=== PATIENT | male | born 1940 | race Asian ===

== ENCOUNTER 2022-02-19 16:23 | Outpatient (REF) | payer MEDICARE, SELFPAY ==
[2022-02-19 16:42] LABS: MANUAL DIFF FLAG NO
[2022-02-19 17:31] LABS: Basophils Percent Auto 0.8 % (0-2); Eosinophils Absolute Auto 0.3 X10*3/uL (0.0-0.4); Eosinophils Percent Auto 6.2 % (0-4); Hematocrit 43.4 % (42.0-52.0); Hemoglobin 14.2 g/dl (14.0-18.0); Imm Gran Abs Auto 0.01 X10*3/uL (0.00-0.03); Imm Gran Pct Auto 0.2 % (0.0-0.4); Lymphocytes Absolute Auto 1.4 X10*3/uL (1.2-4.9); Lymphocytes Percent Auto 26.1 % (20-40); Mean Corpuscular HGB Conc 32.7 g/dl (31.0-36.0); Mean Corpuscular Hemoglobin 30.1 pg (27.0-33.0); Mean Corpuscular Volume 91.9 fL (80.0-98.0); Mean Platelet Volume 9.1 fL (9.4-12.4); Monocytes Absolute Auto 0.6 X10*3/uL (0.1-1.2); Monocytes Percent Auto 11.3 % (2-11); Neutrophils Percent Auto 55.4 % (45-73); Platelet Count 295 X10*3/uL (160-400); Red Blood Count 4.72 X10*6/uL (4.60-5.80); Red Cell Distribution Width 12.9 % (11.0-16.0); White Blood Count 5.3 X10*3/uL (4.8-10.8)
[2022-02-19 17:52] LABS: Alanine Aminotransferase 16 U/L (0-40); Albumin Level 4.4 g/dL (3.5-5.0); Alkaline Phosphatase 63 U/L (39-117); Anion Gap 14 (12-20); Aspartate Amino Transferase 17 U/L (5-37); Bilirubin Total 0.8 mg/dL (0.0-1.0); Blood Urea Nitrogen 19 mg/dL (9-16); Calcium 9.4 mg/dL (8.4-10.2); Carbon Dioxide 28 mmol/L (22-29); Chloride 103 mmol/L (96-108); Cholesterol 153 mg/dL; Estimated Glomerular Filt Rate > 60; Glucose Random 116 mg/dL (60-115); HDL Cholesterol 37 mg/dL; LDL Cholesterol Calculated 96 mg/dl; Potassium 4.4 mmol/L (3.3-5.1); Sodium 141 mmol/L (135-145); Total Protein 7.6 g/dL (6.5-8.0); Triglycerides 103 mg/dL
[2022-02-19 18:13] LABS: Prostate Specific Antigen 2.57 ng/mL (<0.05-4.0)
[2022-02-19 18:24] LABS: Vitamin B12 314 pg/mL (200-900)
== END 2022-02-19 16:24 | disposition home or self-care (01) ==
LOC: HO.LAB 16:23
PROVIDERS: PCP Internal Medicine; Visit Provider Internal Medicine
DX: D51.8 Other vitamin B12 deficiency anemias (principal); E78.2 Mixed hyperlipidemia; I10 Essential (primary) hypertension; N40.0 Benign prostatic hyperplasia without lower urinary tract symptoms; Z12.5 Encounter for screening for malignant neoplasm of prostate
CPT/HCPCS: 36415; 80053; 80061; 82607; 84153; 85025

== ENCOUNTER 2023-08-13 21:55 | Emergency (ER) | payer MEDICARE, SELFPAY ==
[2023-08-13 22:03] VITALS: BP 157/63; PULSE 82; RESP 17; TEMP 36.6; O2SAT 98; BMI 21.9
--- NOTE | 2023-08-13 22:11 | ED_ITS ---
HPI - General Adult General Chief complaint: General Medical Stated complaint: not sleeping well? abnormal bp? Source: patient Mode of arrival: ambulatory Limitations: no limitations History of Present Illness HPI narrative: Patient is an 82 year old assigned male at with no reported medical history presenting to the emergency department today with concerns his blood pressure may be high and struggling to sleep. Patient states that he has been having a hard time sleeping at night lately and he is concerned his blood pressure may be high. Patient denies any dizziness, lightheadedness, abdominal pain, nausea, vomiting, fever, chills, blurry vision, double vision, loss of vision, chest pain, difficulty breathing, shortness of breath, back pain, night sweats, pain with urination, increased urinary frequency, increased urinary urgency, blood in his urine or stool, syncope or a near syncopal episode, recent trauma or falls, bowel incontinence, bladder incontinence, bowel retention, bladder retention, or any other complaints at this time. Relieving factors: none Exacerbating factors: none Associated symptoms: denies other symptoms Treatments prior to arrival: none Related Data Allergies Allergy/AdvReac Type Severity Reaction Status Date / Time No Known Allergies Allergy Unverified 02/17/20 18:30 Review of Systems Constitutional: Constitutional: Reports no additional constitutional complaints, Denies chills, Reports difficulty sleeping, Denies fever(s) and Denies night sweats Eyes: Eyes: Reports no additional eye complaints, Denies blurry vision, Denies change in vision, Denies diplopia, Denies eye discharge, Denies loss of vision and Denies eye pain ENT: Denies dizziness Cardiovascular: Cardiovascular: Reports no additional cardiovascular complaints, Denies chest pain, Denies lightheadedness, Denies Loss of Consciousness and Denies dyspnea Respiratory: Respiratory: Reports no additional respiratory complaints and Denies dyspnea Gastrointestinal: Gastrointestinal: Reports no additional gastrointestinal complaints, Denies abdominal pain, Denies melena, Denies hematochezia, Denies change in bowel habits and Denies change in stool character Genitourinary: Genitourinary: Reports no additional male genitourinary complaints, Denies hematuria, Denies oliguria, Denies difficulty urinating, Denies dysuria, Denies urinary frequency, Denies urinary hesitancy, Denies urinary incontinence and Denies urinary urgency Musculoskeletal: Musculoskeletal: Reports no additional musculoskeletal complaints, Denies numbness and Denies tingling Neurologic: Denies dizziness, Denies loss of vision, Denies numbness and Denies tingling Psychiatric: Psychiatric: Reports no additional psychiatric complaints Endocrine: Endocrine: Reports no additional endocrine complaints Hematologic/Lymphatic: Hematologic/Lymphatic: Reports no additional hematologic/lymphatic complaints Allergic/Immunologic: Allergic/Immunologic: Reports no additional a llergic/immunologic complaints PMFSH Past Medical History Attestation statement: The following information was validated with the patient. Source: old records reviewed and nursing notes reviewed Social History Social History Advance Directives: No Advance Directives Information Provided: No Physical Exam ED Vital Signs: Vital Signs - 24 hr 08/13/23 22:03 Temperature 97.8 F Pulse Rate 82 Respiratory Rate 17 Blood Pressure 157/63 H Pulse Oximetry 98 Oxygen Delivery Method Room Air BMI result Body Mass Index 21.9 Const General: cooperative, no acute distress, alert and awake Nutritional Appearance: well nourished Orientation/consciousness: patient oriented x3 Limitations: no limitations HENMT Head: Yes normal to inspection and Yes atraumatic Ears: hearing grossly normal bilaterally and external ears normal General nose exam: Normal external nose present, no nasal discharge noted and no epistaxis Face and sinus: Yes normal facial exam, No abrasion and No laceration Mouth: Normal oral and palatal mucosa present, no drooling and no muffled voice Eyes General: appearance normal, both eyes and all related structures Periorbital: periorbital findings normal Eyelids: Yes eyelids normal Conjunctivae: conjunctivae normal Pupils: Equal, round and reactive pupils present EOM: EOMs intact bilaterally Neck Neck: Yes normal visual inspection, Yes full ROM and Yes no lymphadenopathy Chest Chest palpation & inspection: normal inspection of the chest Resp Effort & Inspection: normal respiratory effort and able to speak in complete sentences GI Inspection: Yes normal to inspection Neuro General: patient oriented x3 and moves all extremities Cranial nerves: Yes Equal, round and reactive pupils present Cognition (Neuro): normal cognition Motor exam (neuro): 5/5 motor strength present throughout Sensory Exam: Normal double simultaneous stimulation for sensation Coordination: [id number] test normal Extrem General: Yes normal to inspection, Yes full ROM and Yes capillary refill normal Psych Appearance: grossly normal Mental Status: mental status grossly normal Affect: normal affect Attitude: cooperative Thought process: Normal thought process present Thought content: Normal thought content present Insight: Good insight present (Psych) Course Course Course Narrative: RME performed by Yani Pearce PA-C. Patient is an 82 year old assigned male at presenting to the emergency department with difficulty sleeping and some concern. Detailed physical exam and review of systems are deferred to the public policy professor. Labs ordered. Patient placed back in the waiting room pending room availability and results. Medical Decision Making Medical Decision Making MDM Narrative: Patient is an 82 year old assigned male at with no reported medical history presenting to the emergency department today with trouble sleeping and concern his blood pressure is high. Patient's limited physical exam performed in triage was unremarkable. Patient left the department without completing treatmen t. Patient left the department before myself or any of the other emergency department clinicians could explain or review physical exam findings, need for testing, treatment options, or a treatment plan. Differential Diagnosis Differential Diagnoses: The differential diagnosis associated with the presentation includes HTN Elevated blood pressure Anxiety Insomnia Early dementia Admission/Observation Consideration of admission/observation: Escalation of care including admission/observation considered Patient would have been admitted to the hospital had his work up had any findings where hospital admission was appropriate, his clinical presentation w arranted hospital admission, and he hadn't left the department. Discharge Plan Discharge Clinical Impression: Insomnia Patient Disposition: Left W/O Completing Treatment Interventions: LWBS Worksheet Last Done: 08/13/23 22:58 Discharge Date/Time: 08/13/23 22:58
== END 2023-08-13 22:58 | disposition left against medical advice (07) ==
PROVIDERS: Emergency Provider Emergency Medicine
DX: G47.00 Insomnia, unspecified (principal)
CPT/HCPCS: 99281

== ENCOUNTER 2023-08-17 20:56 | Emergency (ER) | payer MEDICARE, SELFPAY ==
[2023-08-17 21:04] VITALS: BP 152/58; PULSE 81; RESP 16; TEMP 36.4; O2SAT 100; BMI 22.5
== END 2023-08-18 02:06 | disposition left against medical advice (07) ==
LOC: HO.ED 08-18 02:06
PROVIDERS: Emergency Provider Emergency Medicine
DX: Z03.89 Encounter for observation for other suspected diseases and conditions ruled out (principal)
CPT/HCPCS: 99281

== ENCOUNTER 2024-11-08 18:55 | Emergency (ER) | payer MEDICARE, SELFPAY ==
--- NOTE | ~2024-11-08 | CT_ITS ---
CLINICAL HISTORY: generalized weakness CT head without contrast Comparison: None Findings: No acute hemorrhage. Basal ganglia calcifications. No extra-axial fluid collection. No hydrocephalus, mass-effect or herniation. Mike-white differentiation is maintained. There is patchy hypoattenuation of the periventricular and deep white matter, which is most likely the sequela of moderate chronic small vessel ischemic disease. No acute orbital pathology. No acute soft tissue abnormality. No fracture. The visualized paranasal sinuses are predominantly clear. The mastoid air cells are clear. Impression: No acute findings. This document has been electronically signed by: Mary Ann Cali MD on 11/08/2024 20:40:49
[2024-11-08 19:19] VITALS: BP 101/50; PULSE 76; RESP 19; TEMP 36.7; O2SAT 97; BMI 23.0
--- NOTE | 2024-11-08 19:25 | ED_ITS ---
HPI - General Adult General Chief complaint: Extremity Injury, Lower Stated complaint: left leg hurts more than right really weak Time Seen by Provider: 11/09/24 01:11 Source: patient, family and old records reviewed Mode of arrival: ambulatory Limitations: no limitations History of Present Illness ED Provider: CHAPARRO MARIA narrative: 84 yo male with PMH HLD, arthritis who states since his COVID shot back in December over a year ago he has had intermittent leg weakness and pain. He notes it has gotten to the point he cannot walk and his notes he can barely get around. He has no new trauma or fevers. He tries to stand up and is really weak. He has not fallen. He could barely get into the bed without RN help. He states he still drives. It appears he tries to stand then cannot initiate his gait. MD complaint: difficulty walking Onset (ago): month(s) (12) Location: left and lower extremity Radiation: non-radiation Severity: moderate Quality: aching Pain Consistency: constant Relieving factors: none Exacerbating factors: movement Associated symptoms: denies other symptoms Treatments prior to arrival: none Related Data Home Medications ?Medication ?Instructions ?Recorded ?Confirmed aspirin 81 mg tablet,delayed 81 mg PO DAILY 11/09/24 11/09/24 release cholecalciferol (vitamin D3) 25 25 mcg PO Q48H 11/09/24 11/09/24 mcg (1,000 unit) tablet (Vitamin D3) cyanocobalamin (vitamin B-12) 1,000 mcg PO DAILY 11/09/24 11/09/24 1,000 mcg tablet lovastatin 10 mg tablet 10 mg PO BEDTIME 11/09/24 11/09/24 naproxen 500 mg tablet 500 mg PO BID 11/09/24 11/09/24 omega 9-abk-alc-fish oil 1,000 mg 1 cap PO Q48H 11/09/24 11/09/24 (120 mg-180 mg) capsule (Fish Oil) Allergies Allergy/AdvReac Type Severity Reaction Status Date / Time No Known Allergies Allergy Verified 11/08/24 19:22 Review of Systems 2 Review of Systems: Constitutional : No Fever, No Chills ENT/Mouth : No Ear Pain, No Hoarseness, No sore throat Eyes: No Eye Pain, No Swelling, No Redness, No Foreign Body Cardiovascular : No Chest Pain, No SOB Respiratory : No Cough, No Dyspnea Gastrointestinal : No Nausea, No Vomiting, No Diarrhea, No abdominal Pain Genitourinary : No Dysuria, No Hematuria Musculoskeletal : positive joint pain, No Myalgias, No Joint Swelling Skin : No Skin lacerations, No rash Neuro : pos Weakness, No Numbness, No Loss of Consciousness, No Dizziness, No Headache Psych : No Anxiety/Panic, No Depression Heme/Lymph: no easy bruising, no Lymphadenopathy Endocrine : No Polyuria, No Polydipsia All other systems reviewed and are negative [facility] Past Medical History Attestation statement: The following information was validated with the patient. Source: old records reviewed Medical History Arthritis Hyperlipidemia Social History Social History (Updated 11/09/24 @ 02:15 by Nelia Sears DO) Patient Tobacco Use Status: Never used Tobacco Smoked in Last 30 Days: No Use of substances other than those prescribed or required for medical reasons: No Advance Directives: No Advance Directives Information Provided: No Do you have a plan to hurt others: No Plan Physical Exam ED Vital Signs: Vital Signs - 24 hr 11/09/24 01:17 11/09/24 09:06 11/09/24 16:19 Temperature 98.7 F 97.3 F 98.1 F Pulse Rate 66 67 60 Respiratory Rate 16 14 16 Blood Pressure 145/62 H 175/77 H 169/81 H Pulse Oximetry 99 99 98 Oxygen Delivery Method Room Air Room Air Room Air 11/09/24 20:20 Temperature 98.7 F Pulse Rate 80 Respiratory Rate 20 Blood Pressure 120/73 Pulse Oximetry 97 Oxygen Delivery Method Room Air BMI result Body Mass Index 23.0 Appearance: Alert. Oriented X3. No acute distress. Eyes: Pupils equal, round and reactive to light. ENT: Pharynx normal. Neck: Normal inspection. Neck supple. CVS: Normal heart rate and rhythm. Pulses normal. Respiratory: No respiratory distress. Breath sounds normal. Abdomen: Soft and nontender. Skin: Skin warm and dry. Normal skin color. Normal skin turgor. Extremities: No lower extremity edema. No calf ttp Neuro: Oriented X 3. No motor deficit. No sensory deficit. CN2-12 intact, has a hard time getting up then when he tries to walk it is shuffling and unsteady Course Course Course Narrative: RME, this is a rapid medical exam performed by John Melo please refer to primary provider for complete H&P- 84 year old male presents for evaluation of worsening weakness since receiving flu and COVID vaccinations at the end of December. Both legs are affected and he is having trouble walking. Plan for labs, ct brain Reevaluation(s) Reevaluation #1: Case management saw the patient today, they were concerned about his safety secondary to his poor mobility, the patient and his had agreed to services to the home, they adamantly have refused rehab. The patient is up and ambulatory, walking with a very slow steady gait. They want to be discharged, they do not want to stay. The patient is alert and oriented x3, his spouse's as well, we can not hold him against his will, I am discharging now. Time: 20:52 Medications Administered Generic Name Dose Route Start Last Admin Trade Name Freq PRN Reason Stop Dose Admin Cefuroxime Axetil 250 mg 11/09/24 21:00 11/09/24 20:21 Cefuroxime Axetil 250 Mg Tablet PO 11/15/24 23:59 250 mg BID ELENA Administration Medical Decision Making Medical Decision Making MDM Narrative: 84 yo male with PMH HLD, arthritis who has > 1 year of issues walking and now gait instability - he has no trauma he blames the covid/flu vaccines. He still drives. He is very unsteady on his feet. This has been a prolonged course at this time will obtain labs, EKG , CT head. Refer to PT/CM if negative Time: 19:01 Date: 11/09/24 Provider: OUSMANE Wadsworth Patient in physician observation for case management needs. No acute events reported overnight.? Urinalysis does appear to be infected, started on Ceftin. technical operations manager saw patient, they want to go home, agreeable to VNA service. There is some concern with safety, with a language barrier, you do have capacity to make this incision, VNA services will not be set up today therefore we will keep overnight, with possible discharge in the morning. Will reassess. Differential Diagnosis Differential Diagnoses: The differential diagnosis associated with the presentation includes PMR, arthritis, FTT, fall risk Admission/Observation Consideration of admission/observation: Escalation of care including admission/observation considered physician observation started at 2am pending PT/CM Consult Healthcare Provider Management of the patient was discussed with: Gymnasium Teacher Lab Data MDM Lab Attestation statement: I reviewed the patient's lab results. 11/08/24 19:57 11/08/24 19:57 Labs: Lab Results 11/08/24 11/09/24 11/09/24 Range/Units 19:57 09:55 10:48 WBC 6.4 (4.8-10.8) X10*3/uL RBC 3.97 L (4.60-5.80) X10*6/uL Hgb 12.5 L (14.0-18.0) g/dl Hct 37.2 L (42.0-52.0) % MCV 93.7 (80.0-98.0) fL MCH 31.5 (27.0-33.0) pg MCHC 33.6 (31.0-36.0) g/dl RDW 12.3 (11.0-16.0) % Plt Count 290 (160-400) X10*3/uL MPV 8.8 L (9.4-12.4) fL Immature Gran % (Auto) 0.3 (0.0-0.4) % Neut % (Auto) 63.2 (45-73) % Lymph % (Auto) 20.6 (20-40) % Gonzales % (Auto) 10.7 (2-11) % Eos % (Auto) 4.6 H (0-4) % Baso % (Auto) 0.6 (0-2) % Lymph # (Auto) 1.3 (1.2-4.9) X10*3/uL Gonzales # (Auto) 0.7 (0.1-1.2) X10*3/uL Eos # (Auto) 0.3 (0.0-0.4) X10*3/uL Baso # (Auto) 0.0 (0.0-0.2) X10*3/uL Abs Immat Gran (auto) 0.02 (0.00-0.03) X10*3/uL Absolute Neuts (auto) 4.0 (2.0-8.3) x10*3/uL Absolute Nucleated RBC 0.000 (0.0-0.012) X10*3/uL Nucleated RBC % (auto) 0.0 (0.0-0.2) /100WBC ESR 12 (0-15) MM/HR Sodium 142 (135-145) mmol/L Potassium 3.8 (3.3-5.1) mmol/L Chloride 111 H (96-108) mmol/L Carbon Dioxide 23 (22-29) mmol/L Anion Gap 12 (12-20) BUN 27 H (9-16) mg/dL Creatinine 1.02 (0.5-1.4) mg/dL Estim Creat Clear Calc 42.6 Estimated GFR > 60 Random Glucose 118 H (60-115) mg/dL Calcium 9.1 (8.4-10.2) mg/dL Total Bilirubin 0.4 (0.0-1.0) mg/dL AST 21 (5-37) U/L ALT 16 (0-40) U/L Alkaline Phosphatase 58 (39-117) U/L Troponin I High Sens < 2.7 (<3.5-35.0) ng/L C-Reactive Protein < 0.10 (< or = 0.50) mg/dL B-Natriuretic Peptide 65 (<100) pg/mL Total Protein 6.7 (6.5-8.0) g/dL Albumin 3.9 (3.5-5.0) g/dL Urine Color Yellow Urine Appearance Clear Urine pH 6.5 (5.0-9.0) Ur Specific [place] 1.015 (1.005-1.025) Urine Protein Negative (Neg-Trace) mg/dL Urine Glucose (UA) Negative (Negative) mg/dL Urine Ketones Negative (Negative) mg/dL Urine Blood Negative (Negative) Urine Nitrite Negative (Negative) Ur Leukocyte Esterase Moderate (2+) H (Negative) Urine RBC 0-2 (0-2) /HPF Urine WBC 21-50 H (0-5) /HPF Ur Squamous Epith Cells 0-2 (0-2) /HPF Urine Bacteria 1+ (None Seen) Hyaline Casts 0-2 (0-2) /LPF Influenza Type A (PCR) NEGATIVE (Negative) Influenza Type B (PCR) NEGATIVE (Negative) RSV RNA Qual (PCR) NEGATIVE (Negative) SARS-CoV-2 RNA (RT-PCR) NEGATIVE (Negative) Independent Interpretation I performed an independent interpretation of an: EKG and CT Scan (no mass) Interpretation: Rate: 70 Rhythm: NSR [place]: left Normal P waves. Normal DIONNE. Normal QRS complex. ST T wave : T wave inversion V1 qTC: 455 prior studies: no change from prior The study has been interpreted contemporaneously by me. . Radiology Impression Discussion of test interpretation with radiology: I have reviewed the radiologist's reading. Independent Historian Clinical information obtained from an independent historian. History obtained from or confirmed by: Spouse External Record Review External record reviewed: Outpatient record Discharge Plan Discharge Clinical Impression: Unstable gait Patient Disposition: Home, Self-Care Additional Instructions: You have declined to stay for your full assessment and care plan that was going to be implemented by case management. There was discussion today in regard to initiating services to your home. I am discharging you per your request. Follow up with your primary care provider as needed. Prescriptions: No Action cyanocobalamin (vitamin B-12) 1,000 mcg tablet 1,000 mcg PO DAILY lovastatin 10 mg tablet 10 mg PO BEDTIME naproxen 500 mg tablet 500 mg PO BID aspirin [Aspir-81] 81 mg Tablet,Delayed Release (Dr/Ec) 81 mg PO DAILY cholecalciferol (vitamin D3) [Vitamin D3] 25 mcg (1,000 unit) Tablet 25 mcg PO Q48H omega 1-khr-qis-fish oil [Fish Oil] 1,000 (120-180) mg Capsule 1 cap PO Q48H Referrals: [facility] [Outside] Print Language: Kelsey Wyman
--- NOTE | 2024-11-08 19:25 | ECG_ITS ---
Test Reason : weakness Blood Pressure : */* mmHG Vent. Rate : 70 BPM Atrial Rate : 70 BPM P-R Int : 192 ms QRS Dur : 90 ms QT Int : 422 ms P-R-T Axes : 44 -40 59 degrees QTcB Int : 455 ms Normal sinus rhythm Left axis deviation Nonspecific T wave abnormality Abnormal ECG When compared with ECG of 13-Aug-2012 16:54, No significant changes seen Referred By: Vipin Melo Electronically Signed By: ANTWAN DEVINE MD
[2024-11-08 20:03] LABS: MANUAL DIFF FLAG NO
[2024-11-08 20:04] LABS: Basophils Percent Auto 0.6 % (0-2); Eosinophils Absolute Auto 0.3 X10*3/uL (0.0-0.4); Eosinophils Percent Auto 4.6 % (0-4); Hematocrit 37.2 % (42.0-52.0); Hemoglobin 12.5 g/dl (14.0-18.0); Imm Gran Abs Auto 0.02 X10*3/uL (0.00-0.03); Imm Gran Pct Auto 0.3 % (0.0-0.4); Lymphocytes Absolute Auto 1.3 X10*3/uL (1.2-4.9); Lymphocytes Percent Auto 20.6 % (20-40); Mean Corpuscular HGB Conc 33.6 g/dl (31.0-36.0); Mean Corpuscular Hemoglobin 31.5 pg (27.0-33.0); Mean Corpuscular Volume 93.7 fL (80.0-98.0); Mean Platelet Volume 8.8 fL (9.4-12.4); Monocytes Absolute Auto 0.7 X10*3/uL (0.1-1.2); Monocytes Percent Auto 10.7 % (2-11); Neutrophils Percent Auto 63.2 % (45-73); Platelet Count 290 X10*3/uL (160-400); Red Blood Count 3.97 X10*6/uL (4.60-5.80); Red Cell Distribution Width 12.3 % (11.0-16.0); White Blood Count 6.4 X10*3/uL (4.8-10.8)
[2024-11-08 20:16] LABS: Alanine Aminotransferase 16 U/L (0-40); Albumin Level 3.9 g/dL (3.5-5.0); Alkaline Phosphatase 58 U/L (39-117); Anion Gap 12 (12-20); Aspartate Amino Transferase 21 U/L (5-37); Bilirubin Total 0.4 mg/dL (0.0-1.0); Blood Urea Nitrogen 27 mg/dL (9-16); C Reactive Protein < 0.10 mg/dL (< or = 0.50); Calcium 9.1 mg/dL (8.4-10.2); Carbon Dioxide 23 mmol/L (22-29); Chloride 111 mmol/L (96-108); Creatinine Clr Calc Pharmacy 42.6; Estimated Glomerular Filt Rate > 60; Glucose Random 118 mg/dL (60-115); Potassium 3.8 mmol/L (3.3-5.1); Sodium 142 mmol/L (135-145); Total Protein 6.7 g/dL (6.5-8.0)
[2024-11-08 20:22] LABS: B Type Natriuretic Peptide 65 pg/mL (<100)
[2024-11-08 20:23] LABS: Troponin-I High Sensitivity < 2.7 ng/L (<3.5-35.0)
[2024-11-08 20:54] LABS: Erythrocyte Sedimentation Rate 12 MM/HR (0-15)
[2024-11-09 01:17] VITALS: BP 145/62; PULSE 66; RESP 16; TEMP 37.1; O2SAT 99
--- NOTE | 2024-11-09 08:08 | PC.NURSE ---
PT at bedside.
[2024-11-09 09:06] VITALS: BP 175/77; PULSE 67; RESP 14; TEMP 36.3; O2SAT 99
[2024-11-09 10:45] LABS: Influenza A PCR NEGATIVE (Negative); Influenza B PCR NEGATIVE (Negative); Resp Syncy Virus RNA Qual PCR NEGATIVE (Negative); SARS COV2 PCR INHOUSE NEGATIVE (Negative)
[2024-11-09 10:55] LABS: Appearance Urine Clear; Color Urine Yellow; Glucose Urine UA Negative (Negative); Leukocyte Esterase Urine Moderate (2+) (Negative); Nitrite Urine Negative (Negative); PH 6.5 (5.0-9.0); Specific Gravity - Urine 1.015 (1.005-1.025); UMIC TRIGGER UACC YES; Urine Blood Negative (Negative); Urine Ketones Negative (Negative); Urine Protein Negative (Neg-Trace)
[2024-11-09 10:59] LABS: Bacteria Urine 1+ (None Seen); Hyaline Casts Urine 0-2 /LPF (0-2); RBC Urine 0-2 /HPF (0-2); Squamous Epithelial Cell Urine 0-2 /HPF (0-2); UACC Culture Trigger YES; WBC Urine 21-50 /HPF (0-5)
--- NOTE | 2024-11-09 11:47 | PC.NURSE ---
Attempted to give RN to RN report, awaiting call back. Plan to move the patient from ED 23 to Overflow.
--- NOTE | 2024-11-09 15:53 | PC.NURSE ---
Med rec completed with Pt and Pts spouse. Medications entered as Pt and report. Pt and also report Pt takes an OTC Vitamin D (unknown strength) and that his Naproxen is not effective. OUSMANE Doe aware of entries and the need for orders as well as information re: Vitamin D and Naproxen.
[2024-11-09 16:19] VITALS: BP 169/81; PULSE 60; RESP 16; TEMP 36.7; O2SAT 98
--- NOTE | 2024-11-09 18:16 | PHA.MEDREC ---
Addendum entered by Mark José [facility] 11/09/24 18:29: Med rec reviewed Original Note: Pharmacy Consult ? Medication Reconciliation Pharmacy has reviewed the medication reconciliation done by nursing. Patient state he takes Asprin 81 mg daily, vitamin D3 1,000mg QOD and Fish Oil 1,000 mg QOD, added to med list
[2024-11-09 20:20] VITALS: BP 120/73; PULSE 80; RESP 20; TEMP 37.1; O2SAT 97
[2024-11-09] MEDS: cefuroxime axetiL 250 MG TABLET PO (20:21)
[2024-11-09 21:16] VITALS: BP 120/73; PULSE 80; RESP 20; TEMP 37.1; O2SAT 97
== END 2024-11-09 21:25 | disposition home or self-care (01) ==
PROVIDERS: Physician Assistant; Physician Assistant Medical; Emergency Provider Emergency Medicine
DX: R26.81 Unsteadiness on feet (principal); M79.605 Pain in left leg; N39.0 Urinary tract infection, site not specified; R06.02 Shortness of breath; R94.31 Abnormal electrocardiogram [ECG] [EKG]; R53.1 Weakness; Z79.899 Other long term (current) drug therapy; Z03.818 Encounter for observation for suspected exposure to other biological agents ruled out
CPT/HCPCS: 0241U; 36415; 70450; 80053; 81001; 83880; 84484; 85025; 85652; 86140; 87086; 87088; 87186; 93005; 97162; 99284

== ENCOUNTER → 2024-11-08 19:25 | Outpatient (BNV) | payer MEDICARE, SELFPAY | PROVIDERS: Emergency Provider Emergency Medicine; Visit Provider Internal Medicine Cardiovascular Disease | DX: R94.31 Abnormal electrocardiogram [ECG] [EKG] (principal); R53.1 Weakness | CPT/HCPCS: 93010 ==

== ENCOUNTER → 2024-11-08 19:25 | Outpatient (BNV) | payer MEDICARE, SELFPAY | PROVIDERS: Visit Provider Radiology Diagnostic Radiology | DX: R53.1 Weakness (principal) | CPT/HCPCS: 70450 ==

== ENCOUNTER 2025-03-04 17:54 | Inpatient (IN) | payer MEDICARE, SELFPAY ==
--- NOTE | ~2025-03-04 | CT_ITS ---
CLINICAL HISTORY: AAA CTA angiography chest using bolus contrast injection. 3-D postprocessing Comparison: None Findings: The pulmonary artery diameter is normal. The aortic root diameter is 3.8 cm. Sino-tubular junction diameter is 3.6 cm. A fusiform ascending aortic aneurysm measures 5.2 cm in diameter Heart size is is enlarged . RV/LV ratio normal. No pericardial effusion. The aortic arch diameter is 2.7 cm. Proximal descending thoracic aorta diameter is 2.6 cm. Mid descending aortic diameter is diameter is 2.3 cm. Distal descending thoracic aorta diameter is 2.2 cm. The diaphragmatic aorta diameter measures 2.1 cm. Trachea and esophagus are unremarkable. Normal lungs No adenopathy. No acute fractures Impression: Cardiomegaly with mild pulmonary vascular congestion Fusiform ascending aortic aneurysm with no dissection. Negative for pulmonary embolus This document has been electronically signed by: Phong Campos MD on 03/05/2025 16:51:36
--- NOTE | ~2025-03-04 | XR_ITS ---
CLINICAL HISTORY: Ruling out metals prior to MRI 1 view abdomen Comparison: None provided Findings: No pneumoperitoneum or pneumatosis. No abnormal calcifications. No acute fractures. IMPRESSION: The bowel gas pattern is normal This document has been electronically signed by: Curt Celis MD on 03/05/2025 13:57:51
--- NOTE | ~2025-03-04 | XR_ITS ---
CLINICAL HISTORY: Ruling out pacemaker prior to MRI 1 view chest x-ray Comparison: None provided Findings: The lungs are clear. Heart size is normal. No acute fracture. IMPRESSION: 1. No acute findings. This document has been electronically signed by: Curt Celis MD on 03/05/2025 13:56:41
--- NOTE | ~2025-03-04 | CT_ITS ---
CLINICAL HISTORY: Stroke Protocol WEAKNESS CT head without contrast Comparison: CT/SR - CT HEAD/BRAIN WO IV CON - 11/08/24 20:03 EDT Findings: Scattered subcortical and periventricular hypoattenuation, likely in keeping with chronic small vessel ischemic disease. Parenchymal volume loss with compensatory prominence of the ventricles and CSF spaces. No acute territorial infarction, intracranial hemorrhage, midline shift or hydrocephalus. Mineralization in the basal ganglia noted. Similar encephalomalacia/gliosis medial right occipital lobe. Mucosal thickening throughout the paranasal sinuses. The orbits are unremarkable. Minimal scalp soft tissue edema/nodularity right lateral scalp. No skull fracture. Bilateral lens extraction. IMPRESSION: 1. No acute intracranial hemorrhage or territorial infarction. 2. Additional findings as described. This document has been electronically signed by: Donald Manuel MD on 03/04/2025 20:05:49
--- NOTE | ~2025-03-04 | US_ITS ---
CLINICAL HISTORY: Dizziness, syncope US Bilateral Carotid Duplex Comparison: None provided Findings: No significant plaque within the common carotid arteries. Noncalcified plaque within the left carotid bulb. Normal color doppler and waveforms morphology. Peak systolic velocities: Right CCA: 121 cm/s. Right ICA: 112 cm/s. ICA/CCA ratio: 0.9. Right ECA: Unremarkable. Right vertebral artery flow antegrade. Left CCA: 213 cm/s. Left ICA: 84 cm/s. ICA/CCA ratio: 0.4. Left ECA: Unremarkable. Left vertebral artery flow antegrade. IMPRESSION: Normal carotid velocities, no significant stenosis (0-49% stenosis). This document has been electronically signed by: Curt Celis MD on 03/05/2025 15:00:43
--- NOTE | ~2025-03-04 | MR_ITS ---
CLINICAL HISTORY: Multiple syncopal episodes MR Brain without gadolinium Comparison: None provided Findings: No restricted diffusion. No intra-axial mass or hemorrhage. No midline shift. No hydrocephalus. Vascular flow voids are intact. Moderate generalized cerebral volume loss and moderate periventricular and subcortical chronic microvascular ischemic changes. 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 Orbital contents are unremarkable. The sinuses and mastoid air cells are clear. No focal bone lesion. 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 Neurosurgery consultation/ MRI of the cervical spine is recommended for further evaluation. No acute intracranial disease. Moderate generalized cerebral volume loss and chronic microvascular ischemic changes. This document has been electronically signed by: Jeramy Casas MD on 03/05/2025 18:36:58
--- NOTE | ~2025-03-04 | XR_ITS ---
CLINICAL HISTORY: r o metal prior to MRI 2 view skull Comparison: None Findings: No fractures or bone lesions. Paranasal sinuses and mastoid air cells clear. Impression: Normal skull. No radiopaque foreign bodies. This document has been electronically signed by: Phong Campos MD on 03/05/2025 16:58:45
--- NOTE | ~2025-03-04 | CT_ITS ---
CLINICAL HISTORY: abdominal aneurysm Exam: CTA Abdomen and CTA Pelvis With bolus IV Contrast injection, 3D reconstructions, MIP and MPR Comparison: None. Findings: The liver density is homogeneous No biliary abnormalities The spleen is normal in size No pancreatic ductal dilatation No hydronephrosis Normal bowel caliber No secondary signs of acute appendicitis No free fluid/free air. No vascular abnormalities. No adenopathy. Proximal abdominal celiac aorta diameter is 2.1 cm. The hepatic and splenic arteries are normal. Superior mesenteric artery aorta diameter is 1.9 cm. the aorta diameter at the level of the renal arteries is 1.7 cm. There are single bilateral renal arteries with symmetric perfusion of both kidneys. The superior mesenteric artery and branch vessels are unremarkable. Distal abdominal aorta diameter is 1.4 cm with calcified plaque extending into bilateral common iliac arteries. Inferior mesenteric artery is diminutive and perfused with poor visualization of origin. Left common iliac artery is 8.1 mm. Right common iliac artery diameter is 7.7 mm. Bilateral external iliac artery diameters are 7.7 mm. Internal iliacs are unremarkable. Bilateral common femoral artery diameters are 7.5 mm. Bladder outline is smooth No suspicious skeletal lesions Impression : No abdominal aneurysm or dissection This document has been electronically signed by: Phong Campos MD on 03/05/2025 16:57:17
[2025-03-04 18:12] VITALS: BP 127/94; BP 138/82; PULSE 80; PULSE 84; RESP 16; TEMP 36.9; O2SAT 95; O2SAT 98; BMI 20.7
--- NOTE | 2025-03-04 18:31 | ED.WEAKNESS ---
HPI - Weakness General Chief complaint: Weakness Stated complaint: weakness increasing over last week Time Seen by Provider: 03/04/25 18:12 History of Present Illness HPI Narrative: Patient is an 84-year-old male with a history of syncope. Patient had multiple syncopal episode yesterday there was no chest pain there is no bloody stool there is no travel history there is no diaphoresis patient has claims these episodes just happens he was sitting at the time. [place] lightheaded then had syncopal episode. Patient claims that the syncopal episode has been happening more frequently since he got a vaccination about a year ago. Patient currently on no medications. No fever no chills. He went to the bank today. The bank employee found that he was very weak. He was unable to get into his car without help. Patient was sent in for further evaluation. Related Data Home Medications ?Medication ?Instructions ?Recorded ?Confirmed aspirin 81 mg tablet,delayed 81 mg PO DAILY 11/09/24 03/04/25 release cholecalciferol (vitamin D3) 25 25 mcg PO Q48H 11/09/24 03/04/25 mcg (1,000 unit) tablet (Vitamin D3) cyanocobalamin (vitamin B-12) 1,000 mcg PO DAILY 11/09/24 03/04/25 1,000 mcg tablet naproxen 500 mg tablet 500 mg PO BID 11/09/24 03/04/25 omega 4-bxw-zbv-fish oil 1,000 mg 1 cap PO Q48H 11/09/24 03/04/25 (120 mg-180 mg) capsule (Fish Oil) Allergies Allergy/AdvReac Type Severity Reaction Status Date / Time No Known Allergies Allergy Verified 03/04/25 18:15 Review of Systems Review of Systems: Positive generalized weakness Positive syncope Yes all other systems are reviewed and are negative [facility] Past Medical History Attestation statement: The following information was validated with the patient. Medical History Arthritis Hyperlipidemia Social History Social History Patient Tobacco Use Status: Never used Tobacco Smoked in Last 30 Days: No Use of substances other than those prescribed or required for medical reasons: No Advance Directives: No Advance Directives Information Provided: Yes Physical Exam Exam: Exam: Appearance: Alert. Oriented X3. No acute distress. Eyes: Pupils equal, round and reactive to light. ENT: Pharynx normal. Neck: Normal inspection. Neck supple. No lymph nodes noted. No crepitus CVS: Normal heart rate and rhythm. Pulses normal. Normal S1 and S2 Respiratory: No respiratory distress. Breath sounds normal. No Wheezing. No rales Abdomen: Soft and nontender. No rigidity. No distention. good BS x4 Skin: Skin warm and dry. Normal skin color. Normal skin turgor. Extremities: No lower extremity edema. Neurovascular intact to all extremities. No Lacerations. No Rash Neuro: Oriented X 3. No motor deficit. No sensory deficit. Moving all extermities. No slurred speech Vital Signs: Vital Signs: Last Vital Signs Temp 97.9 F 03/05/25 00:53 Pulse 81 03/05/25 00:53 Resp 18 03/05/25 00:53 BP 116/72 03/05/25 00:53 Pulse Ox 95 03/05/25 00:53 O2 Del Method Room Air 03/05/25 00:53 BMI result Body Mass Index 20.7 NIH Stroke Scale Internal: Initial- Upon Arrival Time: 19:59 Level of Consciousness: Alert Level of Consciousness Questions: Answers both questions correctly Level of Consciousness Commands: Performs both tasks correctly Best Gaze: Normal Visual: No visual loss Facial Palsy: Normal Motor Arm (Right): No drift Motor Arm (Left): No drift Motor Leg (Right): No drift Motor Leg (Left): No drift Limb Ataxia: Absent Sensory: Normal Best Language: No aphasia Dysarthia: Normal Extinction and Inattention: No abnormality Score: 0 Medications Administered Generic Name Dose Route Start Last Admin Trade Name Freq PRN Reason Stop Dose Admin Atorvastatin Calcium 20 mg 03/04/25 21:40 03/04/25 22:36 Atorvastatin Calcium 20 Mg Tablet PO 20 mg BEDTIME ELENA Administration Sodium Chloride 3 ml 03/05/25 00:00 03/04/25 23:17 0.9 % Sodium Chloride Flush 3 Ml Syringe IVFLUSH 3 ml QSHIFT ELENA Administration Discontinued Medications Generic Name Dose Route Start Last Admin Trade Name Freq PRN Reason Stop Dose Admin Lactated Ringer's 500 mls @ 999 mls/hr 03/04/25 21:10 03/05/25 00:13 Lr IV 03/04/25 21:40 Infused .Q31M STA Infusion Medical Decision Making Medical Decision Making [facility] Narrative: Positive multiple syncopal episodes. No blood in the stool. No fever no chills. My interpretation patient's EKG showed a sinus rhythm heart rate is 70 ID QRS QTC normal no acute ST segment elevation my interpretation patient's CT head was grossly negative. Patient's troponin is negative. Patient's D-dimer is 289 but adjusted for age it is negative. No evidence for PE. BNP is 150 normal no evidence for congestive heart failure. But given patient had multiple episode of syncope will admit for observation overnight. Differential Diagnosis Differential Diagnoses: The differential diagnosis associated with the presentation includes Syncope, PE, ACS, arrhythmia Admission/Observation Consideration of admission/observation: Escalation of care including admission/observation considered Consult Healthcare Provider Management of the patient was discussed with: Hospitalist Lab Data [facility] Lab Attestation statement: I reviewed the patient's lab results. 03/04/25 20:00 03/04/25 20:00 Labs: Lab Results 03/04/25 03/04/25 Range/Units 20:00 20:08 WBC 7.4 (4.8-10.8) X10*3/uL RBC 4.14 L (4.60-5.80) X10*6/uL Hgb 12.7 L (14.0-18.0) g/dl Hct 37.5 L (42.0-52.0) % MCV 90.6 (80.0-98.0) fL MCH 30.7 (27.0-33.0) pg MCHC 33.9 (31.0-36.0) g/dl RDW 12.9 (11.0-16.0) % Plt Count 286 (160-400) X10*3/uL MPV 9.2 L (9.4-12.4) fL Immature Gran % (Auto) 0.3 (0.0-0.4) % Neut % (Auto) 69.6 (45-73) % Lymph % (Auto) 16.0 L (20-40) % [place] % (Auto) 12.3 H (2-11) % Eos % (Auto) 1.3 (0-4) % Baso % (Auto) 0.5 (0-2) % Lymph # (Auto) 1.2 (1.2-4.9) X10*3/uL [place] # (Auto) 0.9 (0.1-1.2) X10*3/uL Eos # (Auto) 0.1 (0.0-0.4) X10*3/uL Baso # (Auto) 0.0 (0.0-0.2) X10*3/uL Abs Immat Gran (auto) 0.02 (0.00-0.03) X10*3/uL Absolute Neuts (auto) 5.2 (2.0-8.3) x10*3/uL Absolute Nucleated RBC 0.000 (0.0-0.012) X10*3/uL Nucleated RBC % (auto) 0.0 (0.0-0.2) /100WBC PT 12.3 (10.9-12.4) SEC INR 1.1 (0.9-1.1) D-Dimer High Sensitivty 289 NG/ML Sodium 141 (135-145) mmol/L Potassium 4.0 (3.3-5.1) mmol/L Chloride 112 H (96-108) mmol/L Carbon Dioxide 23 (22-29) mmol/L Anion Gap 10 L (12-20) BUN 27 H (9-16) mg/dL Creatinine 1.00 (0.5-1.4) mg/dL Estim Creat Clear Calc 40.4 Estimated GFR > 60 POC Glucose 85 (60-115) mg/dL Random Glucose 85 (60-115) mg/dL Calcium 8.9 (8.4-10.2) mg/dL Troponin I High Sens 4.3 D (<3.5-35.0) ng/L NT-Pro-B Natriuret Pep 145.3 (<300) pg/mL Triglycerides 77 (<150) mg/dL Cholesterol 166 (<200) mg/dL LDL Cholesterol, Calc 124 H (<100) mg/dL HDL Cholesterol 27 L (>40) mg/dL TSH 2.64 (0.32-4.0) uIU/mL Ethyl Alcohol < 10 mg/dL Independent Interpretation I performed an independent interpretation of an: EKG (Please see above for patient's EKG) and CT Scan (CT head grossly negative) Radiology Impression Discussion of test interpretation with radiology: I have reviewed the radiologist's reading. Social Determinants Patient?s care significantly limited by Social Determinants of Health including: Problems related to primary support group Discharge Plan Discharge Clinical Impression: Syncope Patient Disposition: Admitted As Inpatient
--- NOTE | 2025-03-04 19:30 | ECG_ITS ---
Test Reason : OM Blood Pressure : */* mmHG Vent. Rate : 71 BPM Atrial Rate : 71 BPM P-R Int : 192 ms QRS Dur : 84 ms QT Int : 420 ms P-R-T Axes : 43 -34 45 degrees QTcB Int : 456 ms Normal sinus rhythm Left axis deviation Nonspecific ST and T wave abnormality Borderline ECG When compared with ECG of 08-Nov-2024 19:47, No significant change was found Referred By: Irina Irwin Electronically Signed By: VALERIA IBRAHIM
[2025-03-04 20:06] LABS: MANUAL DIFF FLAG NO
[2025-03-04 20:07] LABS: Hematocrit 37.5 % (42.0-52.0); Hemoglobin 12.7 g/dl (14.0-18.0); Imm Gran Abs Auto 0.02 X10*3/uL (0.00-0.03); Imm Gran Pct Auto 0.3 % (0.0-0.4); Lymphocytes Absolute Auto 1.2 X10*3/uL (1.2-4.9); Mean Corpuscular HGB Conc 33.9 g/dl (31.0-36.0); Mean Corpuscular Hemoglobin 30.7 pg (27.0-33.0); Mean Corpuscular Volume 90.6 fL (80.0-98.0); NRBC Abs Auto 0.000 X10*3/uL (0.0-0.012); NRBC Pct Auto 0.0 /100WBC (0.0-0.2); Platelet Count 286 X10*3/uL (160-400); Red Blood Count 4.14 X10*6/uL (4.60-5.80); White Blood Count 7.4 X10*3/uL (4.8-10.8)
[2025-03-04 20:18] LABS: Glucose, Whole Blood 85 mg/dL (60-115)
[2025-03-04 20:19] LABS: INTERNATIONAL NORM RATIO 1.1 (0.9-1.1); Prothrombin Time 12.3 SEC (10.9-12.4)
[2025-03-04 20:21] VITALS: BP 114/61; BP 115/61; PULSE 75; PULSE 77; RESP 16; TEMP 36.5; O2SAT 95
[2025-03-04 20:21] LABS: D Dimer High Sensitivity 289 NG/ML
[2025-03-04 20:22] VITALS: BP 111/56; PULSE 81
[2025-03-04 20:26] LABS: Anion Gap 10 (12-20); Blood Urea Nitrogen 27 mg/dL (9-16); Calcium 8.9 mg/dL (8.4-10.2); Carbon Dioxide 23 mmol/L (22-29); Chloride 112 mmol/L (96-108); Cholesterol 166 mg/dL (<200); Creatinine Clr Calc Pharmacy 40.4; Estimated Glomerular Filt Rate > 60; HDL Cholesterol 27 mg/dL (>40); Potassium 4.0 mmol/L (3.3-5.1); Sodium 141 mmol/L (135-145); Triglycerides 77 mg/dL (<150)
[2025-03-04 20:28] LABS: Troponin-I High Sensitivity 4.3 ng/L (<3.5-35.0)
--- NOTE | 2025-03-04 21:12 | PM.IMHP ---
History of Present Illness Date of Service: 03/04/25 Attending physician on admission: Rose [facility] Chief Complaint: Fainting Dimitry Sotomayor is 84 years old man with past medical history significant for hyperlipidemia not currently taking statin was brought to the ED via EMS after he became very weak while in the back today. Patient reported to similar events yesterday. No falls reported. No other symptoms such as headache, visual prominence of focal weakness reported. The patient denied any chest pain or shortness on breath. No nausea, vomiting or diarrhea. He is currently not taking medication. In the ED, he was found to have stable vital signs. Last BP is 111/56. Blood workup is remarkable for anemia of 12.7. There is no leukocytosis and platelets are normal. ETOH level is less than 10. There are no significant electrolyte imbalances but chloride is elevated 112. BUN is 27 and creatinine 1.0. Glucose is 85. Fasting lipid panel is remarkable for elevated LDH and low HDL. Troponin is 4.3. D-dimer is 289. Viral testing for COVID-19, RSV influenza is negative. Head CT scan without contrast showed no acute intracranial hemorrhage or territorial. ECG showed normal sinus rhythm and no acute ischemic changes. ED tx: none Review of Systems Review of Systems: All 12 systems were reviewed and normal except as noted in HPI. [facility] Medical History Arthritis Hyperlipidemia Social History Patient Tobacco Use Status: Never used Tobacco Smoked in Last 30 Days: No Use of substances other than those prescribed or required for medical reasons: No Advance Directives: No Advance Directives Information Provided: Yes Meds Allergies Allergy/AdvReac Type Severity Reaction Status Date / Time No Known Allergies Allergy Verified 03/04/25 18:15 Active Medications: Current Medications Acetaminophen (Acetaminophen 325 Mg Tablet) 650 mg PO Q6H PRN PRN Reason: Pain, Mild 1-3,fever,headache Calcium Carbonate (Calcium Carbonate 750 Mg Tab.Chew) 750 mg PO Q4H PRN PRN Reason: Heartburn Heparin Sodium (Porcine) (Heparin Sodium,Porcine 5,000 Unit/Ml Vial) 5,000 unit SUBCUT Q12H ELENA Magnesium Hydroxide (Milk Of Magnesia 30 Ml Oral.Susp) 30 ml PO DAILY PRN PRN Reason: Constipation Melatonin (Melatonin 3 Mg Tablet) 6 mg PO BEDTIME PRN PRN Reason: Insomnia Sodium Chloride (0.9 % Sodium Chloride Flush 3 Ml Syringe) [facility] Medications ?Medication ?Instructions ?Recorded ?Confirmed ?Last Taken ?Type aspirin 81 mg tablet,delayed 81 mg PO DAILY 11/09/24 11/09/24 11/08/24 History release cholecalciferol (vitamin D3) 25 25 mcg PO Q48H 11/09/24 11/09/24 11/07/24 History mcg (1,000 unit) tablet (Vitamin D3) cyanocobalamin (vitamin B-12) 1,000 mcg PO DAILY 11/09/24 11/09/24 11/08/24 History 1,000 mcg tablet lovastatin 10 mg tablet 10 mg PO BEDTIME 11/09/24 11/09/24 11/08/24 History naproxen 500 mg tablet 500 mg PO BID 11/09/24 11/09/24 11/08/24 History omega 3-akj-gzg-fish oil 1,000 mg 1 cap PO Q48H 11/09/24 11/09/24 11/08/24 History (120 mg-180 mg) capsule (Fish Oil) Physical Exam Vital Signs and Narrative: Vital Signs: Last Vital Signs Temp 97.7 F 03/04/25 20:21 Pulse 81 03/04/25 20:22 Resp 16 03/04/25 20:21 BP 111/56 L 03/04/25 20:22 Pulse Ox 95 03/04/25 20:21 O2 Del Method Room Air 03/04/25 20:21 BMI result Body Mass Index 20.7 Constitutional - Awake and Alert, No apparent distress HEENT - PER, EOMI Heart - RRR, No murmurs Lungs - Normal lung expansion, Normal respiratory effort, No respiratory distress, CTA bilaterally Abdomen - NT / ND; +BS; No rebound or guarding Extremities - no calf tenderness bilaterally, no swelling Musculoskeletal - generalized atrophy Skin - Warm/Dry Neurological - Alert & oriented x3. Moving all extremities spontaneously. No slurred speech. Psychological - Appropriate affect Results Labs 03/04/25 20:00 03/04/25 20:00 Labs: Laboratory Results - last 24 hr 03/04/25 03/04/25 20:00 20:08 MCV 90.6 MCH 30.7 MCHC 33.9 RDW 12.9 Plt Count 286 MPV 9.2 L Immature Gran % (Auto) 0.3 Neut % (Auto) 69.6 Lymph % (Auto) 16.0 L [place] % (Auto) 12.3 H Eos % (Auto) 1.3 Baso % (Auto) 0.5 Lymph # (Auto) 1.2 [place] # (Auto) 0.9 Eos # (Auto) 0.1 Baso # (Auto) 0.0 Abs Immat Gran (auto) 0.02 Absolute Neuts (auto) 5.2 Absolute Nucleated RBC 0.000 Nucleated RBC % (auto) 0.0 PT 12.3 INR 1.1 D-Dimer High Sensitivty 289 Anion Gap 10 L Estim Creat Clear Calc 40.4 Estimated GFR > 60 POC Glucose 85 Random Glucose 85 Calcium 8.9 Troponin I High Sens 4.3 D Triglycerides 77 Cholesterol 166 LDL Cholesterol, Calc 124 H HDL Cholesterol 27 L Ethyl Alcohol < 10 Assessment and Plan (1) Syncope: Qualifiers: Syncope type: unspecified Qualified Code(s): R55 - Syncope and collapse Status: Acute (2) Anemia: Qualifiers: Anemia type: unspecified type Qualified Code(s): D64.9 - Anemia, unspecified Status: Acute Plan Dimitry Sotomayor is 84 y/o man presents with: Multiple syncopal episode, etiology unclear. Possible cardiac. Observation. Fall precautions. Telemetry. Orthostatic Q shift. Will give one bolus LR. Recheck troponin. Recheck hemoglobin in the morning. Check TTE, carotid Doppler and brain MRI. Elevated d-dimer. 289, below the cutoff for his age (850). Chronic normocytic anemia. Anemia workup. Continue to monitor. Hyperlipidemia. Restart statin. Code status: Full DVT prophylaxis: Heparin Quality Stroke Does the patient have a stroke diagnosis?: No VTE Prior VTE?: No VTE Risk Level:: Medical - moderate - high VTE Device Contraindication: Treatment Not Indicated VTE Drug Contraindication: N/A - Med Ordered
[2025-03-04 21:47] LABS: NT Pro B Type Natriuretic Pept 145.3 pg/mL (<300)
[2025-03-04 21:57] LABS: Thyroid Stimulating Hormone 2.64 uIU/mL (0.32-4.0)
--- NOTE | 2025-03-04 22:03 | PHA.MEDREC ---
Addendum entered by Nic Bush RPh 03/04/25 22:11: Reviewed by [facility] Original Note: Pharmacy Consult ? Medication Reconciliation Pharmacy has completed the medication reconciliation. Patent was able to confirm his medications. Patient states she is no longer taking Lovastatin 10 mg because he is drinking tea. Patient confirmed Vitamin D 1,000 mg Q48h and Fish oil q 48h.
--- NOTE | 2025-03-04 22:04 | HO.NURTONUR ---
Addendum entered by Brittanie Salcedo RN 03/05/25 15:02: Pt rests comfortably throughout the day. No complaints offered. Bedside urinal and independent feeds. Original Note: Pt here today c/o multiple syncopal episodes yesterday and today w/ bilat LE weakness. Pt was at the bank when the staff noted when he was walking to his car he had an unsteady gait and didnt look well . In the ED pt did not ambulate so it is unclear as to how weak he may be. Work-up was negative for stroke, however pt is being admitted for a complete work-up of the syncopal episodes.
[2025-03-04] MEDS: Lactated Ringers 500 ML 999 ML IV (22:27)
[2025-03-04] MEDS: 0.9 % Sodium Chloride Flush 3 ML SYRINGE IVFLUSH (23:17)
--- NOTE | 2025-03-04 23:18 | PC.NURSE ---
assumed care of patient at this time, pt resting comfortably no distress noted with call gonzalez within reach, in stretcher with IVF bolus still infusing.
[2025-03-05] VITALS (10 sets, daily range): BP systolic 99–137; BP diastolic 49–90; PULSE 56–91; RESP 15–20; TEMP 36.6–37.3; O2SAT 95–98; BMI 22.7
[2025-03-05 01:11] LABS: Troponin-I High Sensitivity 4.3 ng/L (<3.5-35.0)
[2025-03-05 06:24] LABS: MANUAL DIFF FLAG NO
[2025-03-05 06:32] LABS: Hematocrit 36.0 % (42.0-52.0); Hemoglobin 12.1 g/dl (14.0-18.0); Imm Gran Abs Auto 0.02 X10*3/uL (0.00-0.03); Imm Gran Pct Auto 0.3 % (0.0-0.4); Lymphocytes Absolute Auto 1.1 X10*3/uL (1.2-4.9); Mean Corpuscular HGB Conc 33.6 g/dl (31.0-36.0); Mean Corpuscular Hemoglobin 30.4 pg (27.0-33.0); Mean Corpuscular Volume 90.5 fL (80.0-98.0); NRBC Abs Auto 0.000 X10*3/uL (0.0-0.012); NRBC Pct Auto 0.0 /100WBC (0.0-0.2); Platelet Count 287 X10*3/uL (160-400); Red Blood Count 3.98 X10*6/uL (4.60-5.80); Reticulocytes Absolute 0.053 X10*6/uL (0.026-0.095); White Blood Count 6.3 X10*3/uL (4.8-10.8)
[2025-03-05 06:51] LABS: Anion Gap 11 (12-20); Blood Urea Nitrogen 24 mg/dL (9-16); Calcium 8.8 mg/dL (8.4-10.2); Carbon Dioxide 23 mmol/L (22-29); Chloride 111 mmol/L (96-108); Creatinine Clr Calc Pharmacy 44.0; Estimated Glomerular Filt Rate > 60; Iron 89 mcg/dL (45-160); Magnesium 2.1 mg/dL (1.6-2.6); Percent Iron Saturation 40 % (15-50); Potassium 3.6 mmol/L (3.3-5.1); Sodium 141 mmol/L (135-145); Total Iron Binding Capacity 222 mcg/dL (228-428); Unsaturated Iron Binding 133 ug/dL
[2025-03-05 07:09] LABS: Ferritin 276 ng/mL (20-250)
--- NOTE | 2025-03-05 07:20 | P.PNIM_ITS ---
Subjective Subjective Date of Service: 03/05/25 Interval History: Patient continues to be very deconditioned Infectious, cardiac or neurological causes seem less likely as workup thus far unremarkable Labs unremarkable Vitamin B12, thiamine and folate within normal limits Patient reports that he has been having deconditioning for a while Orthostatic negative However the minute bedside nurses tried to stand him up his legs buckled DVT -Ultrasound done awaiting read Review of Systems Review of Systems: Yes all other systems are reviewed and are negative Physical Exam 2 Exam: Exam: General: AOx3, no acute distress Resp: CTA bilaterally CVS: S1, S2, RRR GI: +BS, NT, no distention Neuro: Cranial nerves II-XII grossly intact bilaterally. Patient unable to walk as he has significant deconditioning and weakness, acute on chronic appears Extremities: No edema Psych: Anxious affect Vital Signs: Vital Signs: Last Vital Signs Temp 97.9 F 03/05/25 00:53 Pulse 67 03/05/25 03:01 Resp 15 03/05/25 03:01 BP 118/51 L 03/05/25 03:01 Pulse Ox 96 03/05/25 03:01 O2 Del Method Room Air 03/05/25 03:01 BMI result Body Mass Index 20.7 Objective Data Active Medications Acetaminophen (Acetaminophen 325 Mg Tablet) 650 mg PO Q6H PRN PRN Reason: Pain, Mild 1-3,fever,headache Aspirin (Aspirin Enteric Coated 81 Mg Tablet.) 81 mg PO DAILY [facility] Atorvastatin Calcium (Atorvastatin Calcium 20 Mg Tablet) 20 mg PO BEDTIME [facility] Last Admin: 03/04/25 22:36 Dose: 20 mg Documented By: CAROLINA Calcium Carbonate (Calcium Carbonate 750 Mg Tab.Chew) 750 mg PO Q4H PRN PRN Reason: Heartburn Cyanocobalamin (Cyanocobalamin (Vitamin B-12) 1,000 Mcg Tablet) 1,000 mcg PO DAILY [facility] Heparin Sodium (Porcine) (Heparin Sodium,Porcine 5,000 Unit/Ml Vial) 5,000 unit SUBCUT Q12H [facility] Magnesium Hydroxide (Milk Of Magnesia 30 Ml Oral.Susp) 30 ml PO DAILY PRN PRN Reason: Constipation Melatonin (Melatonin 3 Mg Tablet) 6 mg PO BEDTIME PRN PRN Reason: Insomnia Sodium Chloride (0.9 % Sodium Chloride Flush 3 Ml Syringe) 3 ml IVFLUSH QSHIFT [facility] Last Admin: 03/04/25 23:17 Dose: 3 ml Documented By: DAVID Vitamin D (Cholecalciferol (Vitamin D3) 25 Mcg Tablet) 25 mcg PO Q48H [facility] Labs 03/05/25 06:08 03/05/25 06:08 Labs: Laboratory Results - last 24 hr 03/04/25 03/04/25 03/05/25 20:00 20:08 00:44 MCV 90.6 MCH 30.7 MCHC 33.9 RDW 12.9 Plt Count 286 MPV 9.2 L Immature Gran % (Auto) 0.3 Neut % (Auto) 69.6 Lymph % (Auto) 16.0 L [place] % (Auto) 12.3 H Eos % (Auto) 1.3 Baso % (Auto) 0.5 Lymph # (Auto) 1.2 [place] # (Auto) 0.9 Eos # (Auto) 0.1 Baso # (Auto) 0.0 Abs Immat Gran (auto) 0.02 Absolute Neuts (auto) 5.2 Absolute Nucleated RBC 0.000 Nucleated RBC % (auto) 0.0 Absolute Retic Percent Retic Immature Retic Fraction Retic Hgb Equivalent PT 12.3 INR 1.1 D-Dimer High Sensitivty 289 Anion Gap 10 L Estim Creat Clear Calc 40.4 Estimated GFR > 60 POC Glucose 85 Random Glucose 85 Calcium 8.9 Magnesium Iron TIBC % Saturation Unsat Iron Binding Ferritin Troponin I High Sens 4.3 D 4.3 NT-Pro-B Natriuret Pep 145.3 Triglycerides 77 Cholesterol 166 LDL Cholesterol, Calc 124 H HDL Cholesterol 27 L TSH 2.64 Ethyl Alcohol < 10 03/05/25 06:08 MCV 90.5 MCH 30.4 MCHC 33.6 RDW 12.9 Plt Count 287 MPV 9.2 L Immature Gran % (Auto) 0.3 Neut % (Auto) 67.4 Lymph % (Auto) 17.1 L [place] % (Auto) 10.8 Eos % (Auto) 3.8 Baso % (Auto) 0.6 Lymph # (Auto) 1.1 L [place] # (Auto) 0.7 Eos # (Auto) 0.2 Baso # (Auto) 0.0 Abs Immat Gran (auto) 0.02 Absolute Neuts (auto) 4.3 Absolute Nucleated RBC 0.000 Nucleated RBC % (auto) 0.0 Absolute Retic 0.053 Percent Retic 1.3 Immature Retic Fraction 8.3 Retic Hgb Equivalent 34.4 PT INR D-Dimer High Sensitivty Anion Gap 11 L Estim Creat Clear Calc 44.0 Estimated GFR > 60 POC Glucose Random Glucose 97 Calcium 8.8 Magnesium 2.1 Iron 89 TIBC 222 L % Saturation 40 Unsat Iron Binding 133 Ferritin 276 H Troponin I High Sens NT-Pro-B Natriuret Pep Triglycerides Cholesterol LDL Cholesterol, Calc HDL Cholesterol TSH Ethyl Alcohol Assessment and Plan (1) Weakness of both legs: Status: Acute Plan Patient is a very sweet 84-year-old gentleman with what appears to be a witnessed atraumatic fall at a local bank. He was admitted for workup of syncope Fall/syncope, atraumatic Significant deconditioning and frailty noted in an elderly Needs PT OT, rehab placement Thus far sepsis, cardiac, neurological , electrolytes, blood work, nonorthostatic workup unrevealing , , no intracranial pathology noted, trauma workup negative, no anemia, no overt signs of bleed However he does appear very deconditioned as we are unable to make him stand on his legs-per the patient it has been happening for more than 1 month. Requested PTOT fire safety manager consulted to look for rehab placement Appears to have voracious appetite D-dimer negative DVT ultrasound scan done awaiting an official read Fall precautions Orthostatics HLD resume statin Need for STR : The patient has experienced significant physical deconditioning resulting from worsening physical endurance, leading to a notable decline in functional status below their prior baseline. They demonstrate severely reduced muscle strength, poor balance, and limited endurance, which now compromise their ability to perform basic Activities of Daily Living (ADLs), such as ambulation, toileting, and transfers. Pt unable to stand at all to perform ADLs. Given their current level of debility, the patient is at a high risk for falls and cannot safely return home at this time, even with home health services. Continued inpatient hospitalization is necessary to stabilize their medical condition and provide intensive, multidisciplinary rehabilitation services. These services are crucial for reversing the deconditioning and restoring enough functional independence to allow for a safe discharge to the next appropriate level of care This note is constructed using voice recognition software. While every effort has been made to ensure accuracy, operator/assistant foreman errors may have been included. Quality Stroke Does the patient have a stroke diagnosis?: No VTE Prior VTE?: No VTE Risk Level:: Medical - moderate - high VTE Device Contraindication: Treatment Not Indicated VTE Drug Contraindication: N/A - Med Ordered
[2025-03-05 07:25] LABS: Folate 8.6 ng/mL (> or = 4.0); Vitamin B12 > 2000 pg/mL (200-900)
[2025-03-05 07:53] LABS: Appearance Urine Clear; Glucose Urine UA Negative (Negative); PH 6.5 (5.0-9.0); Specific Gravity - Urine 1.020 (1.005-1.025)
[2025-03-05] MEDS: Aspirin Enteric Coated 81 MG TABLET.DR PO (08:43)
[2025-03-05] MEDS: 0.9 % Sodium Chloride Flush 3 ML SYRINGE IVFLUSH ×2 (08:46→21:18)
--- NOTE | 2025-03-05 10:58 | MHC.EDTECH ---
Attempted to get pt to stand for ortho vitals, Pt was unable to stand pt became shaky fell back to the bed, pt did not get injury. Rn aware
--- NOTE | 2025-03-05 11:00 | CA_ITS ---
Transthoracic Echocardiogram Patient (Last, First, Middle): Dimitry Sotomayor, Gender: Male Date of : 1940 Age: 84 Procedure Date: 03/05/2025 Procedure Type: Transthoracic Echocardiogram Location: ER Height: 160.02 cm Weight: 52.62 kg BSA: 1.53 m2 Heart Rate: bpm BP: 99 / 53 mmHg Grants Director: LA Referring MD: Rose Hall MD Symptoms: Syncope Study Quality: Adequate ECG Rhythm: Sinus Conclusions: - The left ventricular systolic function is normal. The calculated ejection fraction is 61% by biplane method. - There is mild to moderate tricuspid valve regurgitation. 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 Findings Left Ventricle Normal left ventricular cavity size. There is mildly increased left ventricular wall thickness. The left ventricular systolic function is normal. The calculated ejection fraction is 61% by biplane method. There is no evidence of regional wall motion abnormalities. Diastolic function is normal for age. Right Ventricle Normal right ventricular cavity size and systolic function. Atria Both atria are normal in size. Aortic Valve There is a normal trileaflet aortic valve. There is mild calcification of the aortic valve. There is no aortic valve stenosis. There is mild aortic valve regurgitation. Mitral Valve There is mild mitral annular calcification. There is no mitral valve regurgitation. There is no mitral valve stenosis. Pulmonic Valve The pulmonic valve is likely normal. Tricuspid Valve There is mild to moderate tricuspid valve regurgitation. There is no evidence of pulmonary hypertension. Great Vessels The aortic arch is normal in size. 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 Venous The inferior vena cava is normal in size and collapses greater than 50% with inspiration. Pericardium/Pleural There is no evidence of pericardial effusion. Prior Study Comparison No prior study available for comparison. Measurements 2D Linear Measurements IVSd: 1.28 0.6-0.9/0.6-1.0 cm LVIDd: 3.87 3.9-5.3/4.2-5.9 cm LVIDd Index: 2.53 2.4-3.2/2.2-3.1 cm/m2 LVIDs: 2.56 2.0-3.6 cm LVPWd: 1.23 0.7-1.1 cm LA Diam: 2.80 2.7-3.8/3.0-4.0 cm LAIDs Index: 1.83 1.5-2.3 cm/m2 LV Mass: 209.80 67-162/88-224 g LV Mass Index: 137.13 43-95/49-115 g/m2 LVOT Diam: 2.10 3.0+(-)1.3 cm 2D Systolic Function EF 4C: 59.80 >55% EF 2C: 64.80 >55% EF BiP: 61.10 >55% Mitral Valve MV Pk E: 0.77 MV PK A: 1.12 MV Decel Time: 262.00 E/A: 0.70 E'Lateral: 7.51 E'Medial: 5.33 E/E' Med: 14.40 E/E' Lat: 10.20 PHT: 77.00 MVA PHT: 2.86 Decel Ritchie: 2.92 Aortic Valve AoV Pk Thom: 1.51 AoV Mn Thom: 1.03 AoV VTI: 0.39 AoV Pk Grad: 9.00 Aov Mn Grad: 5.00 CONSUELO Cont.VTI: 2.74 AI Pk Thom: 3.84 AI Ritchie: 1.87 LVOT LVOT Pk Thom: 1.11 LVOT Mn Thom: 0.76 LVOT VTI: 0.31 LVOT Pk Grad: 5.00 LVOT Mn Grad: 3.00 LVOT Diam: 2.10 LVOT Area: 3.46 Diastolic Function MV Pk E: 0.77 MV Pk A: 1.12 E/A: 0.70 E'Medial: 5.33 E/E' Med: 14.40 E' Laterial: 7.51 E/E' Lat: 10.20 Right Ventricle TAPSE (mm): 21.90 TVS' Thom: 10.30 Tricuspid Valve TR Pk Thom: 2.67 TR Pk Grad: 29.00 RA Press: 3.00 RVSP: 32.00 Great Vessels Aorta Sinus of Valsalva: 3.89 2.0-3.[address] [place]: 2.80 1.7-3.4 cm Ao Asc: 4.90 2.1-3.4 cm Ao Arch: 3.90 Updated in Other Vendor System with Status of Final Elvin Busby MD electronically signed on 03/05/2025 1:54:40 PM with status of Final
--- NOTE | 2025-03-05 11:37 | PC.NURSE ---
Addendum entered by Brittanie Salcedo RN 03/05/25 14:39: Approx [id number] Pt returns from MRI. Imaging unable to be obtained due Pts inability to provide PMH. Additional imaging ordered and MRI will be re-attempted after results received. Addendum entered by Brittanie Salcedo RN 03/05/25 12:08: 1138: Pt off unit for MRI Original Note: Pt scheduled for MRI. Attempt to complete screening form. Shift change report received that Pt is [place] speaking however can do simple Kiswahili communications. When [employer] Sensory Scientist set up Pt corrects this RN and Pt reports he uses Lao Mandarin Lao [employer] Sensory Scientist service utilized however Pt has difficulty understanding questions put forth by the shoes hand sewer. Form partially completed with information able to be obtained with simple Kiswahili. Form sent with Pt to MRI.
--- NOTE | 2025-03-05 15:23 | MHC.CM.PN ---
Kelsey 03/05/25, Pt.'s language in Syriac, he is [place] and does understand and speak Divehi, but it was difficult to understand. He said his PCP is Dr. Riley. He lives with his and does not have home health services. his weakness is recent. DCP: TBD, CAROL to follow for DC needs.
[2025-03-05] MEDS: iohexoL 350 MG/ML 100 ML INFUS..BTL IV (15:27)
[2025-03-06] VITALS (13 sets, daily range): BP systolic 139–173; BP diastolic 58–77; PULSE 49–77; RESP 16–20; TEMP 36.1–37.1; O2SAT 95–99
--- NOTE | 2025-03-06 07:30 | P.PNIM_ITS ---
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 I tried to explain to him the arthritis medicine and cardiac medicines can interact with each other and that could likely be the cause of his chronic deconditioning and interactions? We also do not have PT in-house today Rehab placement we will likely happen tomorrow Review of Systems Review of Systems: Yes all other systems are reviewed and are negative Physical Exam 2 Exam: Exam: General: AOx3, no acute distress Resp: CTA bilaterally CVS: S1, S2, RRR GI: +BS, NT, no distention Neuro: Cranial nerves II-XII grossly intact bilaterally. Patient unable to stand as he has significant deconditioning and weakness, acute on chronic appears Psych: Anxious affect Vital Signs: Vital Signs: Last Vital Signs Temp 97.8 F 03/06/25 03:38 Pulse 49 L 03/06/25 06:07 Resp 16 03/06/25 03:38 BP 145/60 H 03/06/25 06:00 Pulse Ox 98 03/06/25 03:38 O2 Del Method Room Air 03/06/25 03:38 BMI result Body Mass Index 22.7 Objective Data Active Medications Acetaminophen (Acetaminophen 325 Mg Tablet) 650 mg PO Q6H PRN PRN Reason: Pain, Mild 1-3,fever,headache Aspirin (Aspirin Enteric Coated 81 Mg Tablet.) 81 mg PO DAILY [facility] Last Admin: 03/05/25 08:43 Dose: 81 mg Documented By: DARYN Atorvastatin Calcium (Atorvastatin Calcium 20 Mg Tablet) 20 mg PO BEDTIME [facility] Last Admin: 03/05/25 21:15 Dose: 20 mg Documented By: JANIA Calcium Carbonate (Calcium Carbonate 750 Mg Tab.Chew) 750 mg PO Q4H PRN PRN Reason: Heartburn Cyanocobalamin (Cyanocobalamin (Vitamin B-12) 1,000 Mcg Tablet) 1,000 mcg PO DAILY [facility] Last Admin: 03/05/25 08:43 Dose: 1,000 mcg Documented By: DARYN Heparin Sodium (Porcine) (Heparin Sodium,Porcine 5,000 Unit/Ml Vial) 5,000 unit SUBCUT Q12H [facility] Last Admin: 03/05/25 21:15 Dose: 5,000 unit Documented By: JANIA Sodium Chloride (Ns) 1,000 mls @ 75 mls/hr IVCONT .[id number] [facility] Last Admin: 03/06/25 01:54 Dose: 75 mls/hr Documented By: JANIA Magnesium Hydroxide (Milk Of Magnesia 30 Ml Oral.Susp) 30 ml PO DAILY PRN PRN Reason: Constipation Melatonin (Melatonin 3 Mg Tablet) 6 mg PO BEDTIME PRN PRN Reason: Insomnia Last Admin: 03/05/25 21:14 Dose: 6 mg Documented By: JANIA Sodium Chloride (0.9 % Sodium Chloride Flush 3 Ml Syringe) 3 ml IVFLUSH QSHIFT [facility] Last Admin: 03/05/25 21:18 Dose: 3 ml Documented By: JANIA Vitamin D (Cholecalciferol (Vitamin D3) 25 Mcg Tablet) 25 mcg PO Q48H [facility] Last Admin: 03/05/25 08:43 Dose: 25 mcg Documented By: DARYN Labs 03/05/25 06:08 03/05/25 06:08 Labs: Laboratory Results - last 24 hr 03/05/25 07:11 Urine Color Yellow Urine Appearance Clear Urine pH 6.5 Ur Specific [place] 1.020 Urine Protein Negative Urine Glucose (UA) Negative Urine Ketones Negative Urine Blood Negative Urine Nitrite Negative Ur Leukocyte Esterase Negative Urine RBC 0-2 Urine WBC 0-5 Ur Squamous Epith Cells 0-2 Urine Bacteria None Seen Hyaline Casts 0-2 Assessment and Plan (1) Weakness of both legs: Status: Acute Plan Patient is a very sweet 84-year-old gentleman with what appears to be a witnessed atraumatic fall at a local [place]. 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 I tried to explain to him the arthritis medicine and cardiac medicines can interact with each other and that could likely be the cause of his chronic deconditioning and interactions? We also do not have PT in-house today Rehab placement we will likely happen tomorrow Fall/syncope, atraumatic Significant deconditioning and frailty noted in an elderly Needs PT OT, rehab placement Thus far sepsis, cardiac, neurological , electrolytes, blood work, nonorthostatic workup unrevealing , , no intracranial pathology noted, trauma workup negative, no anemia, no overt signs of bleed However he does appear very deconditioned as we are unable to make him stand on his legs-per the patient it has been happening for more than 1 month. Requested PTOT field manager consulted to look for rehab placement Appears to have voracious appetite D-dimer negative DVT ultrasound scan done awaiting an official read Fall precautions Orthostatics challenging as the patient is unable to stand HLD resume statin Need for STR : The patient has experienced significant physical deconditioning resulting from worsening physical endurance, leading to a notable decline in functional status below their prior baseline. They demonstrate severely reduced muscle strength, poor balance, and limited endurance, which now compromise their ability to perform basic Activities of Daily Living (ADLs), such as ambulation, toileting, and transfers. Pt unable to stand at all to perform ADLs. Given their current level of debility, the patient is at a high risk for falls and cannot safely return home at this time, even with home health services. Continued inpatient hospitalization is necessary to stabilize their medical condition and provide intensive, multidisciplinary rehabilitation services. These services are crucial for reversing the deconditioning and restoring enough functional independence to allow for a safe discharge to the next appropriate level of care This note is constructed using voice recognition software. While every effort has been made to ensure accuracy, filter tip catcher errors may have been included. Quality Stroke Does the patient have a stroke diagnosis?: No VTE Prior VTE?: No VTE Risk Level:: Medical - moderate - high VTE Device Contraindication: Treatment Not Indicated VTE Drug Contraindication: N/A - Med Ordered
[2025-03-06] MEDS: Aspirin Enteric Coated 81 MG TABLET.DR PO (08:58)
--- NOTE | 2025-03-06 10:35 | PM.CNCAR ---
History of Present Illness History of Present Illness Date of Service: 03/06/25 Chief complaint: Syncope Narrative: This is a cardiology consultation regarding aortic aneurysm. Patient does not have any known cardiac history. He is also poor historian and additionally has some language barrier. Admissions regarding weakness and some falls but again on repeated questioning, patient is somewhat vague with answers. Also not entirely clear if it truly had any syncopal episode or just falling down. Any case, he underwent further workup with an echocardiogram which showed ascending aortic aneurysm. This was followed by chest CT scan which confirmed the same. Patient denies any previous cardiac history. Currently not having any chest pain or cardiac symptoms. Review of Systems Review of Systems: Yes all other systems are reviewed and are negative Constitutional: Constitutional: Reports as per HPI, Reports no additional constitutional complaints, Reports frequent falls and Reports weakness Eyes: Eyes: Reports as per HPI and Denies no additional eye complaints ENT: Denies system reviewed and no additional complaints, except as documented and Reports as per HPI Cardiovascular: Cardiovascular: Reports as per HPI, Reports no additional cardiovascular complaints, Denies acrocyanosis, Denies cool extremities, Denies chest pain, Denies leg edema, Denies lightheadedness, Denies palpitations and Denies dyspnea Respiratory: Respiratory: Reports as per HPI, Denies no additional respiratory complaints and Denies dyspnea Gastrointestinal: Gastrointestinal: Reports as per HPI and Denies no additional gastrointestinal complaints Genitourinary: Genitourinary: Reports no additional male genitourinary complaints and Reports as per HPI Musculoskeletal: Musculoskeletal: Reports no additional musculoskeletal complaints and Reports as per HPI Integumentary/Breasts: Skin/Breast: Reports system reviewed and no additional complaints, except as docu Neurologic: Reports system reviewed and no additional complaints, except as documented, Reports as per HPI, Reports frequent falls and Reports weakness Psychiatric: Psychiatric: Reports no additional psychiatric complaints and Reports as per HPI Endocrine: Endocrine: Reports no additional endocrine complaints, Reports as per HPI and Denies palpitations Hematologic/Lymphatic: Hematologic/Lymphatic: Reports no additional hematologic/lymphatic complaints and Reports as per HPI Allergic/Immunologic: Allergic/Immunologic: Reports no additional allergic/immunologic complaints and Reports as per HPI [facility] Past Medical History Medical History Arthritis Hyperlipidemia Family History Pertinent family history: No pertinent family history Social History Social History Household Members: Spouse Housing: Apartment Do you presently have visiting nurse or other home services: Yes Patient Tobacco Use Status: Never used Tobacco service: No Meds Allergies Allergy/AdvReac Type Severity Reaction Status Date / Time No Known Allergies Allergy Verified 03/04/25 18:15 Active Medications: Current Medications Acetaminophen (Acetaminophen 325 Mg Tablet) 650 mg PO Q6H PRN PRN Reason: Pain, Mild 1-3,fever,headache Aspirin (Aspirin Enteric Coated 81 Mg Tablet.Dr) 81 mg PO DAILY [facility] Last Admin: 03/06/25 08:58 Dose: 81 mg Atorvastatin Calcium (Atorvastatin Calcium 20 Mg Tablet) 20 mg PO BEDTIME [facility] Last Admin: 03/05/25 21:15 Dose: 20 mg Calcium Carbonate (Calcium Carbonate 750 Mg Tab.Chew) 750 mg PO Q4H PRN PRN Reason: Heartburn Cyanocobalamin (Cyanocobalamin (Vitamin B-12) 1,000 Mcg Tablet) 1,000 mcg PO DAILY [facility] Last Admin: 03/06/25 08:58 Dose: 1,000 mcg Heparin Sodium (Porcine) (Heparin Sodium,Porcine 5,000 Unit/Ml Vial) 5,000 unit SUBCUT Q12H [facility] Last Admin: 03/06/25 08:58 Dose: 5,000 unit Sodium Chloride (Ns) 1,000 mls @ 75 mls/hr IVCONT .[id number] [facility] Last Admin: 03/06/25 01:54 Dose: 75 mls/hr Magnesium Hydroxide (Milk Of Magnesia 30 Ml Oral.Susp) 30 ml PO DAILY PRN PRN Reason: Constipation Melatonin (Melatonin 3 Mg Tablet) 6 mg PO BEDTIME PRN PRN Reason: Insomnia Last Admin: 03/05/25 21:14 Dose: 6 mg Sodium Chloride (0.9 % Sodium Chloride Flush 3 Ml Syringe) 3 ml IVFLUSH QSHIFT [facility] Last Admin: 03/06/25 08:58 Dose: Not Given Vitamin D (Cholecalciferol (Vitamin D3) 25 Mcg Tablet) 25 mcg PO Q48H [facility] Last Admin: 03/05/25 08:43 Dose: 25 mcg Home Medications ?Medication ?Instructions ?Recorded ?Confirmed ?Last Taken ?Type aspirin 81 mg tablet,delayed 81 mg PO DAILY 11/09/24 03/04/25 03/04/25 History release cholecalciferol (vitamin D3) 25 25 mcg PO Q48H 11/09/24 03/04/25 11/07/24 History mcg (1,000 unit) tablet (Vitamin D3) cyanocobalamin (vitamin B-12) 1,000 mcg PO DAILY 11/09/24 03/04/25 03/04/25 History 1,000 mcg tablet naproxen 500 mg tablet 500 mg PO BID 11/09/24 03/04/25 03/04/25 History omega 8-jef-bcj-fish oil 1,000 mg 1 cap PO Q48H 11/09/24 03/04/25 11/08/24 History (120 mg-180 mg) capsule (Fish Oil) Physical Exam Vital Signs: Vital Signs: Last Vital Signs Temp 97.8 F 03/06/25 07:39 Pulse 57 03/06/25 07:58 Resp 20 03/06/25 07:39 BP 151/76 H 03/06/25 07:58 Pulse Ox 95 03/06/25 07:39 O2 Del Method Room Air 03/06/25 07:39 BMI result Body Mass Index 22.7 Const: General: comfortable and no acute distress Orientation/consciousness: patient oriented x3 HEENT: Other: Unremarkable Head: Yes normal to inspection Neck: Neck: Yes normal visual inspection Chest: Chest palpation & inspection: normal inspection of the chest Resp: Auscultation: clear to auscultation bilaterally Cardio: Palpation: normal PMI Heart sounds: S1 normal heart sound present, S2 normal heart sound present, no gallops, no murmurs and no rubs GI: Palpation (GI): Soft to palpation Back/Spine/Pelvis: Other: unremarkable Skin: General skin exam: no rashes or lesions noted Neuro: General: patient oriented x3 Extrem: General: Yes normal to inspection Psych: Mental Status: mental status grossly normal Objective Labs and Meds 03/05/25 06:08 03/05/25 06:08 ECG Interpretation: EKG with underlying sinus rhythm at 71/Min; leftward axis; nonspecific ST-T changes; normal NC and corrected QT. Assessment and Plan (1) Ascending aortic aneurysm: Status: Acute Plan In the echocardiogram, LVEF is 61%. Ascending aortic size 4.9 cm. In the chest CTA, ascending aortic size 5.2 cm. No other aneurysm elsewhere. With regard to the aneurysm itself, this is not the etiology for weakness or falls. However, this size it needs cardiac surgery consultation. Discussed with Dr. Jarrod biggs [facility] who recommends outpatient evaluation. Blood pressure is on the higher side but it was lower before. We will need to keep the systolic under 120 mm Hg and diastolic under 80 mm Hg. If the blood pressure does stay high, consider adding a medication like amlodipine. Additionally, patient does not a good surgery candidate; he does not really have much of understanding. Spent several minutes discussing this but not clear how much she understood. Otherwise, there is report of cord compression in the brain MRI and that could be the reason for his weakness and falls. Hence pursue Neurosurgery consultation for that. Discussed with Dr. Gomez. Procedures Date of Service Date of Service: 03/06/25
[2025-03-06] MEDS: 0.9 % Sodium Chloride Flush 3 ML SYRINGE IVFLUSH ×2 (15:00→21:04)
[2025-03-07] VITALS (10 sets, daily range): BP systolic 126–167; BP diastolic 62–77; PULSE 51–99; RESP 16–18; TEMP 36.1–37.2; O2SAT 94–99
--- NOTE | 2025-03-07 | EEG_ITS ---
Roomed Performed:?402 Reason: underlying seizures History: hyperlipidemia, arthritis - Patient presented to ED for multiple syncopal events on 03/03/25 at home. He reports feeling some lightheadedness and subsequent loss of consciousness. Patient notes feeling very weak lately. Medication: no home medications Technical description Photic stimulation: completed Hyperventilation:?omitted Behavioral state: cooperative State of Consciousness: awake Skull defect: none Sedation: none Handedness: right hand Duration of study:?30 min ? 35? sec Description: This is a 16 channel EEG with an EKG lead. Patient is reported awake during the tracing. Background EEG rhythm is 10-12 hertz 5-100 microvolt posteriorly lower amplitude fast anteriorly. Photic stimulation does not produce any significant abnormality. Intermittent left temporal sharp waves were noted. Cardiac lead did not reveal any significant abnormality. Hyperventilation was not performed. Impression: Mildly abnormal EEG suggestive of left temporal irritability. MTDD
--- NOTE | 2025-03-07 07:28 | HO.PM.IMPN ---
Subjective Subjective Date of Service: 03/07/25 Interval History: patient continues to be quite deconditioned Neurology consulted We will get an EEG today Out to consider probably seizures as his reason for deconditioning, although less likely needs to be completely ruled out prior to discharge\ care challenging given poor medical insight We will need outpatient PCP and Orthopedic workup Review of Systems Review of Systems: Yes all other systems are reviewed and are negative Physical Exam Exam: Exam: General: AOx3, no acute distress Resp: CTA bilaterally CVS: S1, S2, RRR GI: +BS, NT, no distention Neuro: Cranial nerves II-XII grossly intact bilaterally. Patient unable to stand as he has significant deconditioning and weakness, acute on chronic appears Psych: Anxious affect, tangential talk, poorly redirectable Vital Signs: Vital Signs: Last Vital Signs Temp 97.0 F 03/07/25 07:09 Pulse 63 03/07/25 07:09 Resp 18 03/07/25 07:09 BP 141/74 H 03/07/25 07:09 Pulse Ox 94 03/07/25 07:09 O2 Del Method Room Air 03/07/25 07:09 BMI result Body Mass Index 22.7 Objective Data Active Medications Acetaminophen (Acetaminophen 325 Mg Tablet) 650 mg PO Q6H PRN PRN Reason: Pain, Mild 1-3,fever,headache Aspirin (Aspirin Enteric Coated 81 Mg Tablet.) 81 mg PO DAILY [facility] Last Admin: 03/06/25 08:58 Dose: 81 mg Documented By: BRADLEY Atorvastatin Calcium (Atorvastatin Calcium 20 Mg Tablet) 20 mg PO BEDTIME [facility] Last Admin: 03/06/25 21:04 Dose: 20 mg Documented By: JANIA Calcium Carbonate (Calcium Carbonate 750 Mg Tab.Chew) 750 mg PO Q4H PRN PRN Reason: Heartburn Cyanocobalamin (Cyanocobalamin (Vitamin B-12) 1,000 Mcg Tablet) 1,000 mcg PO DAILY [facility] Last Admin: 03/06/25 08:58 Dose: 1,000 mcg Documented By: BRADLEY Heparin Sodium (Porcine) (Heparin Sodium,Porcine 5,000 Unit/Ml Vial) 5,000 unit SUBCUT Q12H [facility] Last Admin: 03/06/25 21:03 Dose: 5,000 unit Documented By: JANIA Sodium Chloride (Ns) 1,000 mls @ 75 mls/hr IVCONT .[id number] [facility] Last Admin: 03/07/25 03:26 Dose: 75 mls/hr Documented By: JANIA Magnesium Hydroxide (Milk Of Magnesia 30 Ml Oral.Susp) 30 ml PO DAILY PRN PRN Reason: Constipation Melatonin (Melatonin 3 Mg Tablet) 6 mg PO BEDTIME PRN PRN Reason: Insomnia Last Admin: 03/05/25 21:14 Dose: 6 mg Documented By: JANIA Sodium Chloride (0.9 % Sodium Chloride Flush 3 Ml Syringe) 3 ml IVFLUSH QSHIFT [facility] Last Admin: 03/06/25 21:04 Dose: 3 ml Documented By: JANIA Vitamin D (Cholecalciferol (Vitamin D3) 25 Mcg Tablet) 25 mcg PO Q48H [facility] Last Admin: 03/05/25 08:43 Dose: 25 mcg Documented By: DARYN Labs 03/05/25 06:08 03/05/25 06:08 Assessment and Plan (1) Weakness of both legs: Status: Acute Plan Patient is a very sweet 84-year-old gentleman with what appears to be a witnessed atraumatic fall at a local [place]. He was admitted for workup of syncope: Fall/syncope, atraumatic Significant deconditioning and frailty noted in an elderly Needs PT OT, rehab placement Thus far sepsis, cardiac, neurological , electrolytes, blood work, nonorthostatic workup unrevealing , , no intracranial pathology noted ( microvascular changes, severe spinal care narrowing chronic ), trauma workup negative, no anemia, no overt signs of bleed patient had extensive workup done as he is a poor historian and we needed multiple images CT and MRI However he does appear very deconditioned as we are unable to make him stand on his legs-per the patient it has been happening for more than 1 month. 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, likely chronic - op NS eval Neurology consulted- EEG to be done to rule out seizures, patient does far asymptomatic no obvious seizure activity noted We will likely need outpatient neuro, neurosurgery evaluation patient appears neurovascularly intact Moderate generalized cerebral was volume loss and chronic microvascular ischemic changes likely in the setting of age related versus subacutely controlled hypotension AAA-fusiform ascending aorta-chronic - fusiform ascending aortic aneurysm measures 5.2 cm - outpatient management HLD resume statin Need for STR : The patient has experienced significant physical deconditioning resulting from worsening physical endurance, leading to a notable decline in functional status below their prior baseline. They demonstrate severely reduced muscle strength, poor balance, and limited endurance, which now compromise their ability to perform basic Activities of Daily Living (ADLs), such as ambulation, toileting, and transfers. Pt unable to stand at all to perform ADLs. Given their current level of debility, the patient is at a high risk for falls and cannot safely return home at this time, even with home health services. Continued inpatient hospitalization is necessary to stabilize their medical condition and provide intensive, multidisciplinary rehabilitation services. These services are crucial for reversing the deconditioning and restoring enough functional independence to allow for a safe discharge to the next appropriate level of care This note is constructed using voice recognition software. While every effort has been made to ensure accuracy, gold cutter errors may have been included. Quality Stroke Does the patient have a stroke diagnosis?: No VTE Prior VTE?: No VTE Risk Level:: Medical - moderate - high VTE Device Contraindication: Treatment Not Indicated VTE Drug Contraindication: N/A - Med Ordered
[2025-03-07] MEDS: 0.9 % Sodium Chloride Flush 3 ML SYRINGE IVFLUSH ×2 (10:33→20:06)
[2025-03-07] MEDS: Aspirin Enteric Coated 81 MG TABLET.DR PO (10:33)
--- NOTE | 2025-03-07 11:59 | PM.NEUROCN ---
History of Present Illness Data of Consult Service Date: 03/07/25 Primary Care Provider: Unknown Physician HPI This is an 84-year-old male with a past medical history of hyperlipidemia, arthritis who had multiple syncopal episodes on 03/03/2025 at home. He presented to the emergency room on 03/04/2025 reporting these events. He denied any chest pain, bloody stools, travel, diaphoresis. He reported feeling some lightheadedness and then subsequent loss of consciousness. He had reported that these episodes happen more frequently since getting a vaccination approximately 1 year prior. He is on any medications, had no recent illnesses, but does note has been feeling very weak lately. His initial workup included labs which were relatively unrevealing as well as extensive imaging including CT, MRI imaging, x-rays, and CT angio of the chest abdomen and pelvis. His brain MRI showed some severe spinal canal narrowing at the cervical medullary junction causing cord compression with abnormal central cord signal, likely chronic. Neurosurgery consultation and MRI of the cervical spine was recommended for further evaluation. Aside from this, there was no acute intracranial disease. There was moderate generalized cerebral volume loss and chronic microvascular ischemic changes. 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 He denies any known seizure history. Review of Systems Review of Systems: Yes all other systems are reviewed and are negative PMFSH Past Medical History Medical History Arthritis Hyperlipidemia Social History Social History Household Members: Spouse Housing: Apartment Do you presently have visiting nurse or other home services: Yes Patient Tobacco Use Status: Never used Tobacco service: No Meds Allergies Allergy/AdvReac Type Severity Reaction Status Date / Time No Known Allergies Allergy Verified 03/04/25 18:15 Active Medications: Current Medications Acetaminophen (Acetaminophen 325 Mg Tablet) 650 mg PO Q6H PRN PRN Reason: Pain, Mild 1-3,fever,headache Aspirin (Aspirin Enteric Coated 81 Mg Tablet.) 81 mg PO DAILY [facility] Last Admin: 03/07/25 10:33 Dose: 81 mg Atorvastatin Calcium (Atorvastatin Calcium 20 Mg Tablet) 20 mg PO BEDTIME [facility] Last Admin: 03/06/25 21:04 Dose: 20 mg Calcium Carbonate (Calcium Carbonate 750 Mg Tab.Chew) 750 mg PO Q4H PRN PRN Reason: Heartburn Cyanocobalamin (Cyanocobalamin (Vitamin B-12) 1,000 Mcg Tablet) 1,000 mcg PO DAILY [facility] Last Admin: 03/07/25 10:33 Dose: 1,000 mcg Heparin Sodium (Porcine) (Heparin Sodium,Porcine 5,000 Unit/Ml Vial) 5,000 unit SUBCUT Q12H [facility] Last Admin: 03/07/25 10:34 Dose: 5,000 unit Magnesium Hydroxide (Milk Of Magnesia 30 Ml Oral.Susp) 30 ml PO DAILY PRN PRN Reason: Constipation Melatonin (Melatonin 3 Mg Tablet) 6 mg PO BEDTIME PRN PRN Reason: Insomnia Last Admin: 03/05/25 21:14 Dose: 6 mg Sodium Chloride (0.9 % Sodium Chloride Flush 3 Ml Syringe) 3 ml IVFLUSH QSHIFT [facility] Last Admin: 03/07/25 10:33 Dose: 3 ml Vitamin D (Cholecalciferol (Vitamin D3) 25 Mcg Tablet) 25 mcg PO Q48H [facility] Last Admin: 03/07/25 10:33 Dose: 25 mcg Home Medications ?Medication ?Instructions ?Recorded ?Confirmed ?Last Taken ?Type aspirin 81 mg tablet,delayed 81 mg PO DAILY 11/09/24 03/04/25 03/04/25 History release cholecalciferol (vitamin D3) 25 25 mcg PO Q48H 11/09/24 03/04/25 11/07/24 History mcg (1,000 unit) tablet (Vitamin D3) cyanocobalamin (vitamin B-12) 1,000 mcg PO DAILY 11/09/24 03/04/25 03/04/25 History 1,000 mcg tablet naproxen 500 mg tablet 500 mg PO BID 11/09/24 03/04/25 03/04/25 History omega 7-skp-zdd-fish oil 1,000 mg 1 cap PO Q48H 11/09/24 03/04/25 11/08/24 History (120 mg-180 mg) capsule (Fish Oil) Physical Exam Vital Signs: Vital Signs: Last Vital Signs Temp 97.0 F 03/07/25 11:05 Pulse 63 03/07/25 11:05 Resp 17 03/07/25 11:05 BP 126/62 03/07/25 11:05 Pulse Ox 95 03/07/25 11:05 O2 Del Method Room Air 03/07/25 11:05 BMI result Body Mass Index 22.7 Const: Orientation/consciousness: oriented to person, oriented to place and oriented to time HEENT: Head: Yes normal to inspection Neuro: General: oriented to person, oriented to place, oriented to time and Unable to assess gait Cranial nerves: Yes CN's II-XII intact bilaterally Gait exam (Neuro): Unable to assess gait Motor exam (neuro): Abnormal motor strength present (4/5 throughout ) Coordination: [id number] test normal Results Labs 03/05/25 06:08 03/05/25 06:08 Assessment and Plan (1) Syncope: Qualifiers: Syncope type: unspecified Qualified Code(s): R55 - Syncope and collapse Status: Acute (2) Weakness of both legs: Status: Acute Plan This is an 84-year-old male with a past medical history of hyperlipidemia, arthritis who had multiple syncopal episodes on 03/03/2025 at home. He presented to the emergency room on 03/04/2025 reporting these events. He denied any chest pain, bloody stools, travel, diaphoresis. Seizure remains a possibility for causes of syncope though patient is a poor historian and details surrounding these syncopal episodes is minimal. He does have a fair amount of atrophy in his brain which may put him at a slightly higher risk for seizure. I think it would be reasonable to perform an EEG to rule out seizure activity. 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 As recommended by Radiology, I agree with a Neurosurgery consult and C-spine MRI however these can be completed on an outpatient basis. Procedures Date of Service Date of Service: 03/07/25
--- NOTE | 2025-03-07 15:49 | MHC.CM.PN ---
PT WAS CHANGED TO INPATIENT, IMM GIVEN 03/07. THIS CM MET WITH PT, HE IS PRIMARILY MANDARIN MAORI SPEAKING, THIS CM OFFERED PT AN VIDEO TAPE TRANSFERRER, HE DECLINED. PT EVALUATED PT AND RECOMMENDED STR, PT IS IN AGREEMENT WITH GOING TO STR, STR REFERRALS SENT, AWAITING BED OFFER.
[2025-03-08] VITALS (9 sets, daily range): BP systolic 98–146; BP diastolic 52–85; PULSE 54–88; RESP 16–18; TEMP 36.4–36.6; O2SAT 97–98
[2025-03-08] MEDS: 0.9 % Sodium Chloride Flush 3 ML SYRINGE IVFLUSH (08:16)
[2025-03-08] MEDS: Aspirin Enteric Coated 81 MG TABLET.DR PO (08:16)
--- NOTE | 2025-03-08 12:00 | MHC.CM.PN ---
CM met with pt. and his , and the RN and the video rouge presser to discuss DCP. Pt. wants to go home and have his take care of him. CM discussed VNA services, he declined, saying he needs to be home to rest and have his take care of him. His does not drives, they have stairs going into the home, will set up BLS transport home. Pt. and were advised to contact their PCP if they want home care services after he gets home.
--- NOTE | 2025-03-08 15:49 | PM.DS ---
DS: Providers Provider Date of Service: 03/08/25 Date of admission: 03/04/25 21:06 Date of discharge: 03/08/25 Primary care physician: Camilla Lewis MD Consults: 03/06/25 08:06 Consult to Cardiology Routine Consulting Provider: [facility] Reason for consultation: new HF? AAA imaging 03/07/25 07:25 Consult to Neurology Stat Consulting Provider: [facility] Reason for consultation: Seizures DS: Diagnosis Discharge Diagnosis (1) Weakness of both legs: Status: Acute DS: Summary Hospital Course Hospital Course: Admission HPI Chief Complaint: Fainting Dimitry Sotomayor is 84 years old man with past medical history significant for hyperlipidemia not currently taking statin was brought to the ED via EMS after he became very weak while in the back today. Patient reported to similar events yesterday. No falls reported. No other symptoms such as headache, visual prominence of focal weakness reported. The patient denied any chest pain or shortness on breath. No nausea, vomiting or diarrhea. He is currently not taking medication. In the ED, he was found to have stable vital signs. Last BP is 111/56. Blood workup is remarkable for anemia of 12.7. There is no leukocytosis and platelets are normal. ETOH level is less than 10. There are no significant electrolyte imbalances but chloride is elevated 112. BUN is 27 and creatinine 1.0. Glucose is 85. Fasting lipid panel is remarkable for elevated LDH and low HDL. Troponin is 4.3. D-dimer is 289. Viral testing for COVID-19, RSV influenza is negative. Head CT scan without contrast showed no acute intracranial hemorrhage or territorial. ECG showed normal sinus rhythm and no acute ischemic changes. ED tx: none hospital course: His initial workup included labs which were relatively unremaarkable, CT, MRI imaging, x-rays, and CT angio of the chest abdomen and pelvis shwoed no acute finding. 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 Neurosurgery consultation and MRI of the cervical spine was recommended for further evaluation on outpatient basis along with C-spine MRI. He was not exhibiting urinary or stool incontinence however does have weekness. An EEG showed no epileptiform activity. He was evaluated by PT and recommended for STR rehab but he and declined in favor or outpatient home PT. Time Attestation Discharge Coordination Time (in mins): 40 Quality: Safe Use of Opioids Does Pt have an Active Cancer Diagnosis on the Problem List?: No Quality: Stroke Does the patient have a stroke diagnosis?: No Physical Exam Vital Signs: Vital Signs: Last Vital Signs Temp 97.8 F 03/08/25 11:04 Pulse 88 03/08/25 14:17 Resp 18 03/08/25 11:04 BP 107/63 03/08/25 14:17 Pulse Ox 98 03/08/25 11:04 O2 Del Method Room Air 03/08/25 11:04 BMI result Body Mass Index 22.7 Discharge Plan Discharge Anticipated Discharge Date/Time: 03/08/25 14:20 Patient Disposition: Home, Self-Care Discharge Diagnosis: Syncope, Mylopathy Referrals: Camilla Lewis MD [Primary Care Provider, Internal Medicine] - 1 Week Discharge Medications: Continued cyanocobalamin (vitamin B-12) 1,000 mcg tablet 1,000 mcg PO DAILY naproxen 500 mg tablet 500 mg PO BID aspirin [Aspir-81] 81 mg Tablet,Delayed Release (Dr/Ec) 81 mg PO DAILY cholecalciferol (vitamin D3) [Vitamin D3] 25 mcg (1,000 unit) Tablet 25 mcg PO Q48H omega [id number]-fish oil [Fish Oil] 1,000 (120-180) mg Capsule 1 cap PO Q48H Diet: Advance to usual diet Activity on Discharge: As tolerated Stand Alone Forms: Patient Portal Discharge page Print Language: Mandarin Hebrew Care Plan Goals: Recovery from syncope and mylopathy Health Concerns: syncope mylopathy Plan of Treatment: follow up with juan francisco finney in a week Assessment: see
[2025-03-11 16:54] LABS: Vitamin D 25-OH, D2 <4 ng/mL; Vitamin D 25-OH, D3 23 ng/mL; Vitamin D 25-OH, Total 23 ng/mL (30-100)
== END 2025-03-08 18:33 | disposition home or self-care (01) | DRG 312 ==
LOC: HO.ED 18:21 → HO.EDOVER 03-05 01:52 → HO.IMC 03-05 15:01 → HO.EDOVER 03-07 14:56 → HO.IMC 03-07 14:56
PROVIDERS: Admitting Provider Internal Medicine; Emergency Provider Emergency Medicine Emergency Medical Services; PCP Internal Medicine; Visit Provider Internal Medicine
DX: R55 Syncope and collapse (principal); M48.02 Spinal stenosis, cervical region; I71.21 Aneurysm of the ascending aorta, without rupture; R53.81 Other malaise; E78.5 Hyperlipidemia, unspecified; D64.9 Anemia, unspecified; Z79.82 Long term (current) use of aspirin; Z79.899 Other long term (current) drug therapy
CPT/HCPCS: 36415; 70250; 70450; 70551; 71045; 71275; 74018; 74174; 80048; 80061; 80307; 81001; 82306; 82607; 82728; 82746; 82947; 83540; 83735; 83880; 84443; 84484; 85025; 85045; 85379; 85610; 93005; 93306; 93880; 95816; 97110; 97162; 97166; 97530; 99222; 99285; J0360; J1644; J7120; Q9957; Q9967

== ENCOUNTER → 2025-03-04 19:30 | Outpatient (BNV) | payer MEDICARE, SELFPAY | PROVIDERS: Emergency Provider Emergency Medicine Emergency Medical Services; Visit Provider Radiology Diagnostic Radiology | DX: R55 Syncope and collapse (principal) | CPT/HCPCS: 93880 ==

== ENCOUNTER → 2025-03-04 19:30 | Outpatient (BNV) | payer MEDICARE, SELFPAY | PROVIDERS: Admitting Provider Internal Medicine; Emergency Provider Emergency Medicine Emergency Medical Services; Visit Provider Internal Medicine | DX: H66.90 Otitis media, unspecified, unspecified ear (principal) | CPT/HCPCS: 93010 ==

== ENCOUNTER 2025-03-04 21:06 | Outpatient (BNV) | payer MEDICARE, SELFPAY | END 2025-03-05 12:45 | PROVIDERS: Admitting Provider Internal Medicine; Emergency Provider Emergency Medicine Emergency Medical Services; Visit Provider Specialist | DX: Z03.89 Encounter for observation for other suspected diseases and conditions ruled out (principal) | CPT/HCPCS: 71045; 74018 ==

== ENCOUNTER 2025-03-04 21:06 | Outpatient (BNV) | payer MEDICARE, SELFPAY | END 2025-03-07 13:30 | PROVIDERS: Admitting Provider Internal Medicine; Emergency Provider Emergency Medicine Emergency Medical Services; PCP Internal Medicine; Visit Provider Psychiatry & Neurology Neurology | DX: R56.9 Unspecified convulsions (principal) | CPT/HCPCS: 95816 ==

== ENCOUNTER 2025-03-04 21:06 | Outpatient (BNV) | payer MEDICARE, SELFPAY | END 2025-03-05 11:00 | PROVIDERS: Admitting Provider Internal Medicine; Emergency Provider Emergency Medicine Emergency Medical Services; Visit Provider Internal Medicine | DX: I36.1 Nonrheumatic tricuspid (valve) insufficiency (principal); I77.810 Thoracic aortic ectasia | CPT/HCPCS: 93306 ==

== ENCOUNTER → 2025-03-04 21:06 | Outpatient (BNV) | payer MEDICARE, SELFPAY | PROVIDERS: Admitting Provider Internal Medicine; Emergency Provider Emergency Medicine Emergency Medical Services; Visit Provider Internal Medicine | DX: I71.21 Aneurysm of the ascending aorta, without rupture (principal) | CPT/HCPCS: 99223 ==

== ENCOUNTER → 2025-03-04 21:06 | Outpatient (BNV) | payer MEDICARE, SELFPAY | PROVIDERS: Admitting Provider Internal Medicine; Emergency Provider Emergency Medicine Emergency Medical Services; Visit Provider Internal Medicine | DX: R29.898 Other symptoms and signs involving the musculoskeletal system (principal) | CPT/HCPCS: 99232 ==